=== PATIENT | female | born 1950 | race Caucasian/White ===

== ENCOUNTER 2019-02-24 06:36 | Day surgery (SDC) | payer MEDICARE ==
[2019-02-24] MEDS ORDERED: Diazepam 5 MG TAB ONE (07:17)
[2019-02-24] MEDS ORDERED: Midazolam HCl 2 mg/2 ml Vial ONE (07:55)
[2019-02-24] MEDS ORDERED: Fentanyl 100 MCG/2 ML VIAL ONE (07:55)
[2019-02-24] MEDS ORDERED: Aspirin Chewable 81 MG TAB ONE (07:58)
[2019-02-24] MEDS ORDERED: Heparin 10,000 UNITS/1 ML VIAL ONE (07:59)
[2019-02-24] MEDS ORDERED: Clopidogrel Bisulfate 300 MG TAB ONE (08:34)
[2019-02-24] MEDS ORDERED: Iopamidol 370 76% 100 ML VIAL ONE (09:50)
--- NOTE | 2019-02-24 15:35 | ULT ---
ULTRASOUND THYROID STANDARD: Date: 02/24/19 HISTORY: Thyroid cyst. COMPARISON: CT angiogram of neck from 2016. FINDINGS: Real-time Quintana scale and color evaluation of the thyroid was performed. Isthmus measures 4.0 mm in AP dimension. Right lobe measures 3.0 x 1.6 x 1.2 cm. Left lobe measures 2 .2 x 1.3 x 1.1 cm. There is a hypoechoic solid nodule within the right lobe of the liver, which is wider than tall, with smooth margins, without echogenic foci, measuring 0.9 x 0.5 x 0.7 cm. This is TIRADS 4 - Mildly susp icious. Given its small size, no aspiration or follow-up is required. Within the left lobe of the thyroid, there is a hypoechoic solid nodule with lobular margins, wider t bonds tall, without echogenic foci. This is a TIRADS 4 - Mildly suspicious. This nodule measures 0.8 x 0.5 x 0.6 cm. Given its small size, no follow-up nor fine needle aspiration is recommended. IMPRESSION: Nodules within both the right left lobe of the thyroid are both TIRADS 4 - Mildly suspicious. Althoug h given their small size, per TIRADS criteria, no follow-up or fine needle aspiration is required at this time. POS: [facility]
== END 2019-02-24 16:45 | disposition home or self-care (01) ==
LOC: CCL 06:36
PROVIDERS: ATTEND Internal Medicine Cardiovascular Disease
PROC: 027034Z Dilation of Coronary Artery, One Artery with Drug-eluting Intraluminal Device, Percutaneous Approach (ICD-10-PCS; principal; 2019-02-24)
PROC: 4A023N7 Measurement of Cardiac Sampling and Pressure, Left Heart, Percutaneous Approach (ICD-10-PCS; 2019-02-24)
PROC: B2111ZZ Fluoroscopy of Multiple Coronary Arteries using Low Osmolar Contrast (ICD-10-PCS; 2019-02-24)
DX: I25.10 Atherosclerotic heart disease of native coronary artery without angina pectoris (principal); I47.2 Ventricular tachycardia; E78.2 Mixed hyperlipidemia; I10 Essential (primary) hypertension; J44.9 Chronic obstructive pulmonary disease, unspecified; E04.2 Nontoxic multinodular goiter; Z86.73 Personal history of transient ischemic attack (TIA), and cerebral infarction without residual deficits; Z79.01 Long term (current) use of anticoagulants; Z79.899 Other long term (current) drug therapy
CPT/HCPCS: 76536; 76942; 92928; 93005; 93010; 93458; 99152; C1769; C1887; C9600; J1644; J2250; J3010; Q9967

== ENCOUNTER 2019-03-19 05:55 | Day surgery (SDC) | payer MEDICARE ==
[2019-03-18 11:47] VITALS: BMI 29.2
[2019-03-19] MEDS ORDERED: Midazolam HCl 2 mg/2 ml Vial ONE ×2 (07:32→10:58)
[2019-03-19] MEDS ORDERED: Fentanyl 100 MCG/2 ML VIAL ONE ×2 (07:32→10:58)
[2019-03-19] MEDS ORDERED: Propofol 500 MG/50 ML VIAL ONE (07:33)
[2019-03-19 09:35] LABS: #Basophils 0.1 thou/uL (0.0-0.2); #Eosinphils 0.1 thou/uL (0.0-0.7); #Lymphocytes 1.6 thou/uL (1.20-3.40); #Monocytes 0.7 thou/uL (0.11-0.59); #Neutrophils 4.7 thou/uL (1.40-6.50); %Basophils 0.8 % (0.0-1.0); %Eosinophils 1.9 % (0.0-10.0); %Lymphocytes 22.5 % (21.0-51.0); %Monocytes 9.4 % (0.0-10.0); %Neutrophils 65.4 % (42.0-75.0); Hemoglobin 12.4 g/dL (12.0-16.0); Mean Corpuscular HGB CONC 32.9 g/dL (32.0-36.0); Mean Corpuscular Hemoglobin 29.9 pg (27.0-31.0); Mean Corpuscular Volume 90.9 fL (78.0-98.0); Mean Platelet Volume 8.9 fL (7.4-10.4); Platelet Count 293 thou/uL (130-400); RBC Distribution Width 13.4 % (11.5-14.5); Red Blood Cell (RBC) Count 4.14 mill/uL (4.20-5.40); White Blood Cell (WBC) Count 7.2 thou/uL (4.8-10.8)
[2019-03-19 09:42] LABS: INR-International Normal Ratio 1.1; PTT 32.2 SEC (22.9-36.1); Prothrombin Time 14.8 SEC (12.0-14.7)
[2019-03-19 09:49] LABS: Anion Gap 11 mmol/L (10-20); BUN (Urea Nitrogen) 23 mg/dL (9.8-20.1); Calc. Creatinine Clearance 43 mL/min (70-130); Calcium 10.5 mg/dL (7.8-10.44); Carbon Dioxide 30 mmol/L (23-31); Chloride 103 mmol/L (98-107); Estimated GFR-MDRD 38; Glucose 117 mg/dL (80-115); Potassium 3.5 mmol/L (3.5-5.1); Sodium 140 mmol/L (136-145)
[2019-03-19] MEDS ORDERED: Lidocaine 1% (PF) 30 ML VIAL ONE (10:38)
--- NOTE | 2019-03-19 14:13 | OP ---
DATE OF PROCEDURE: 03/19/2019 INDICATIONS FOR PROCEDURE: Syncope, nonsustained ventricular tachycardia. PROCEDURE PERFORMED: Comprehensive electrophysiologic study with inductions. MEDICATIONS: As per Anesthesia. COMPLICATIONS: None. ESTIMATED BLOOD LOSS: Less than 5 mL. METHODS: After informed consent was obtained, the patient was brought to electrophysiology laboratory. The patient was prepped and draped in the usual sterile fashion. Using lidocaine, skin overlying the right femoral vessel was locally anesthetized and two 6-Zimbabwean sheaths were placed using standard techniques. They were aspirated and flushed. Under fluoroscopic guidance, quadripolar catheters were advanced. One was placed in the high right atrium and the other was placed to the His-bundle recording site. Atrial decremental pacing was performed with His-bundle electrogram recording. Next, the His-bundle catheter was moved to the ventricle for right ventricular pacing and recording and the atrial catheter was moved into coronary sinus for direct left atrial pacing and recording. Right ventricular pacing and recording performed to assess retrograde conduction characteristics. Pacing from the left atrium was performed to induce atrial flutter. Programmed stimulation was then performed in the ventricle to induce ventricular tachycardia. Programmed electrical stimulation was performed at 2 pacing cycle lengths at 500 and 400 milliseconds with quadruple extrastimuli down to less than 200 milliseconds. At the end of the procedure, all catheters were pulled, sheaths were pulled, pressure was applied to obtain hemostasis, and the patient was allowed to return to the recovery area in good condition. FINDINGS: 1. At baseline, the patient is in sinus rhythm with frequent premature ventricular complexes. Sinus cycle length was 776, AK interval was 151, QRS was 157 with right bundle morphology, QT was 463, AH was 56, HV was 54, antegrade Wenckebach block was seen at 470 milliseconds, retrograde Wenckebach block to 330 milliseconds. Retrograde conduction was noted to be concentric and decremental. No conclusive evidence for dual AV jered physiology is seen. HV interval measures 54 milliseconds. Blocked bundle of His was not seen. No accessory pathway of the atrioventricular type is identified. 2. Quadruple extrastimuli is provided at both 500 milliseconds pacing cycle length as well as 400 milliseconds pacing cycle length and was taken down to less than 200 milliseconds. Nonsustained polymorphic ventricular tachycardia could be seen with programmed electrical stimulation that was aggressive. IMPRESSION: Negative electrophysiologic study for inducible monomorphic ventricular tachycardia. No sustained arrhythmias were seen. RECOMMENDATIONS: In light of the patient's history of CVA as well as unexplained syncope, an ILR recorder would certainly have 2 separate indications for each of those issues. We are pending Insurance approval for placing an ILR monitor. Job ID: [id number]
[2019-03-19] MEDS ORDERED: Lidocaine 1% w/Epinephrine 1:100K 20 ML VIAL ONE (15:25)
--- NOTE | 2019-03-19 23:07 | OP ---
DATE OF PROCEDURE: 03/19/2019 INDICATIONS FOR PROCEDURE: Ms. Davis is a pleasant 68-year-old lady who has a history of syncope and nonsustained ventricular tachycardia. She underwent invasive electrophysiologic study and was found to be noninducible for malignant ventricular arrhythmia and because of her sudden syncope as well as a history of cryptogenic CVA, it was elected to place an ILR. MEDICATIONS: None. COMPLICATIONS: None. ESTIMATED BLOOD LOSS: None. METHODS: After informed consent was obtained, the patient was in PCU. She was prepped and draped in usual fashion. Using lidocaine, skin overlying the anterior chest wall was locally anesthetized using standard techniques. The skin puncture was performed and the LINQ was inserted in the subcutaneous tissue without difficulty. A 4-0 Vicryl stitch was placed to re-oppose the skin followed by Dermabond. Device was programmed. She tolerated the procedure well. The device implanted is a [employer] LINQ [id number], serial #[id number]. IMPRESSION: Successful implantable loop recorder insertion for cryptogenic stroke and syncope. RECOMMENDATIONS: Follow up in 6 weeks. Job ID: [id number]
--- NOTE | 2019-03-20 03:16 | DIS ---
DATE OF ADMISSION: 03/19/2019 DATE OF DISCHARGE: 03/19/2019 HISTORY OF PRESENT ILLNESS: Ms. Davis is a 68-year-old lady who has a history of coronary artery disease status post recent percutaneous revascularization. She apparently had recurrent nonsustained ventricular tachycardia. She also has a history of unexplained syncope preceded by little dizziness and also had a history of cryptogenic stroke. She is brought in today for invasive electrophysiological study in order to assess whether she is at risk for sudden cardiac . She does have well-preserved left ventricular systolic function. HOSPITAL COURSE: She was taken to electrophysiology laboratory, comprehensive electrophysiologic study with induction was performed and included program stimulation at 2 pacing cycle lengths with quadruple extrastimuli. She was not found to be inducible into a ventricular tachycardia that was meaningful. No ICD was therefore required. Her insurance is currently pending as to whether or not they will approve placement of an ILR for either of the diagnostic criteria for ILR as that being cryptogenic stroke or unexplained syncope with the potential for a malignant arrhythmia. At the present time, we anticipate her to discharge home today in good condition. Advised to follow a heart healthy diet. Activity otherwise as directed. MEDICATIONS: She will continue her home medications that include: 1. Apixaban. 2. Symbicort. 3. Clopidogrel. 4. Cymbalta. 5. Ezetimibe. 6. Losartan/hydrochlorothiazide. 7. Metoprolol. 8. Singulair. If insurance approves ILR placement, we will certainly try to do that before she leaves, if not she may need a second procedure once approved by her insurance. PRINCIPAL DIAGNOSES: 1. Syncope. 2. Nonsustained ventricular tachycardia. 3. Coronary artery disease, status post recent revascularization. 4. Previous cerebrovascular accident. PRINCIPAL PROCEDURES: 1. Comprehensive electrophysiologic study. 2. Left a trial pacing and recording with induction. Job ID: [id number]
== END 2019-03-19 16:55 | disposition home or self-care (01) ==
LOC: SDC 05:55
PROVIDERS: ATTEND Internal Medicine Cardiovascular Disease
PROC: 4A023FZ Measurement of Cardiac Rhythm, Percutaneous Approach (ICD-10-PCS; principal; 2019-03-19)
PROC: 4A0234Z Measurement of Cardiac Electrical Activity, Percutaneous Approach (ICD-10-PCS; 2019-03-19)
PROC: 0JH632Z Insertion of Monitoring Device into Chest Subcutaneous Tissue and Fascia, Percutaneous Approach (ICD-10-PCS; 2019-03-19)
DX: I47.2 Ventricular tachycardia (principal); R55 Syncope and collapse; I10 Essential (primary) hypertension; E78.5 Hyperlipidemia, unspecified; Z86.73 Personal history of transient ischemic attack (TIA), and cerebral infarction without residual deficits; Z79.01 Long term (current) use of anticoagulants; Z79.02 Long term (current) use of antithrombotics/antiplatelets; Z79.51 Long term (current) use of inhaled steroids; Z79.899 Other long term (current) drug therapy; Z88.8 Allergy status to other drugs, medicaments and biological substances; Z95.5 Presence of coronary angioplasty implant and graft; Z98.890 Other specified postprocedural states
CPT/HCPCS: 80048; 85025; 85610; 85730; 93620; 93621; C1730; C1769; J1642; J2001; J2250; J2704; J3010

== ENCOUNTER 2019-03-19 20:58 | Inpatient (IN) | payer MEDICARE ==
[2019-03-19] MEDS ORDERED: Amiodarone In Dextrose 200 ML IVPB SCH (21:15)
[2019-03-19] MEDS ORDERED: Amiodarone 150 MG/3 ML VIAL ONE (21:22)
[2019-03-19] MEDS ORDERED: Magnesium 2 GM/50 ML BAG (IN WATER) ONE ×2 (21:25→22:20)
[2019-03-19] MEDS ORDERED: Lidocaine 2% PF 100 mg/5 ml Syringe ONE ×2 (21:32→22:27)
[2019-03-19] MEDS ORDERED: Ondansetron PF 4 MG/2 ML Vial ONE (21:34)
[2019-03-19] MEDS ORDERED: Midazolam HCl 2 mg/2 ml Vial ONE (22:20)
[2019-03-19] MEDS ORDERED: Lidocaine 2 gm/D5W 500 ml 500 ML ONE (22:40)
[2019-03-19 22:49] LABS: CKMB 2.9 ng/mL (0-6.6)
[2019-03-19] MEDS ORDERED: Acetaminophen 325 MG TAB PO PRN (23:53)
[2019-03-19] MEDS ORDERED: HYDROcodone/Acetaminophen 7.5/325 mg Tablet PO PRN (23:53)
[2019-03-19] MEDS ORDERED: traMADol HCl 50 MG TAB PO PRN (23:56)
[2019-03-20] MEDS ORDERED: Sodium Chloride 0.9% 1,000 ML IV SCH (00:15)
[2019-03-20] MEDS ORDERED: Lidocaine 2 gm/D5W 500 ml 500 ML IVPB SCH (00:15)
[2019-03-20 00:39] VITALS: BMI 32.3
[2019-03-20] MEDS: Amiodarone 450 MG in Dextrose 5% in Water 250 ML IVPB SCH ×2 (01:02→16:01)
[2019-03-20 01:49] LABS: Troponin I 0.092 ng/mL (< 0.028)
--- NOTE | 2019-03-20 02:16 | HP ---
TIME: 11:50 p.m. HISTORY OF PRESENT ILLNESS: This is a 68-year-old white female with a history of coronary artery disease, hypertension, hyperlipidemia, peptic ulcer disease, asthma, and CVA, who presents with syncope. The patient's issues began approximately 3 months ago, when she was at home and passed out for no reason. She did not tell family. She did not seek medical attention. Then, approximately 1 month ago, she was in the kitchen. She passed out and awoke on her back on the floor. She then went to a class. She did not seek any medical attention at that time. She then had a recurrent episode and her family took her to see Dr. Najera who performed a Cardiolite stress test, which was found to be unremarkable. She also had a cardiac catheterization, which revealed disease of the circumflex and a stent x1 was placed. She was also referred to Dr. Ceballos recently and after insurance approval, Dr. Brown inserted a loop recorder today. She then left the office and went to eat at [employer] and on her way in, she had another syncopal episode. EMS was called. There, she was found to be in v-tach. She was then sent to the [facility], treatment was initiated. She was then transferred to [facility] where she was stabilized. She was cardioverted twice. She was then placed on an amiodarone drip and then later to a lidocaine drip, which controlled her v-tach. Dr. Plasencia has been consulted and has been managing her medications. She will remain on IV amiodarone, magnesium, and lidocaine overnight. PAST MEDICAL HISTORY: Includes asthma, coronary artery disease, hypertension, hyperlipidemia, CVA in 2016, peptic ulcer disease, treated for H pylori, followed by Dr. Berrios. SURGERIES: Include total knee replacement, JERE-BSO, T and A, cardiac cath on 03/17/2019, and cystectomy. MEDICATIONS: Include; 1. Ellipta inhaler. 2. Eliquis 5 b.i.d. 3. Losartan/HCTZ 100/25 q.a.m. 4. Singulair 10 p.o. at bedtime. 5. ProAir p.r.n. 6. Tramadol 50 p.r.n. 7. [place] 10/325 q.6 p.r.n. pain. 8. Crestor 20 daily. 9. Zetia 10 daily. 10. Duloxetine 60 daily. 11. Symbicort 2 puffs b.i.d. 12. Flonase 1 spray each nostril daily. 13. Magnesium 400 daily. ALLERGIES: NIACIN, WHICH CAUSES SWEATS AND LIPS TO TINGLE. FAMILY HISTORY: Mother with a CVA at 74. Father with an PR at the age of 84. Multiple family members with coronary artery disease, hypertension, hyperlipidemia, lung issues, diabetes, strokes, and drug addiction. SOCIAL HISTORY: She is . She had 2 sons, one from drug addiction. The other son lives in [place], [place]. She has 1 grandson. She has no tobacco or alcohol use. She is a retired teacher. REVIEW OF SYSTEMS: As above. PHYSICAL EXAMINATION: VITAL SIGNS: Blood pressure 99/60, pulse 76, respirations 17, pulse ox 98. GENERAL: The patient is currently sedated from cardioversion. She has received IV Versed. Otherwise, in no acute distress. HEENT: Pupils equal and reactive to light. Extraocular movements intact. TM, nose, throat clear. NECK: Supple. HEART: Regular rate and rhythm at this time. LUNGS: Clear. ABDOMEN: Soft, obese. EXTREMITIES: With no edema. LABORATORY DATA: White count 7.2, H and H of 12 and 34, platelet of 293. Sodium 140, potassium 3.5, creatinine 1.39, BUN 23, glucose 139. Liver function tests normal. Lipase 42. TSH 1.242. Urine; specific gravity 1.026. H pylori antibody negative. ASSESSMENT: 1. Recurrent ventricular tachycardia, responding today to IV lidocaine drip. In a normal sinus rhythm at this time. 2. Status post cardioversion x2 tonight. 3. Coronary artery disease with a stent x1. 4. Asthma. 5. Peptic ulcer disease. 6. History of cerebrovascular accident in 2016. 7. Hypertension. 8. Hyperlipidemia. PLAN: 1. History was obtained from the sister. The patient was sedated status post IV Versed. 2. We will continue on the lidocaine drip at 2 mg/min and amiodarone drip at 1 mg/min. 3. We will continue with magnesium. 4. Protonix [address] 5[address]. Plasencia has been consulted. 6. The patient will be transferred to the ICU. Routine orders ordered. 7. We will continue to follow. Job ID: [id number]
[2019-03-20] MEDS: Ipratropium Bromide 2.5 ml Neb NEB SCH ×4 (03:12→18:47)
[2019-03-20 04:45] LABS: #Monocytes 0.7 thou/uL (0.11-0.59); #Neutrophils 5.8 thou/uL (1.40-6.50); %Basophils 0.4 % (0.0-1.0); %Eosinophils 0.6 % (0.0-10.0); %Lymphocytes 13.2 % (21.0-51.0); %Monocytes 8.8 % (0.0-10.0); %Neutrophils 76.9 % (42.0-75.0); Hemoglobin 10.4 g/dL (12.0-16.0); Mean Corpuscular Hemoglobin 30.3 pg (27.0-31.0); Mean Corpuscular Volume 91.6 fL (78.0-98.0); Mean Platelet Volume 9.2 fL (7.4-10.4); Platelet Count 222 thou/uL (130-400); RBC Distribution Width 13.2 % (11.5-14.5); Red Blood Cell (RBC) Count 3.45 mill/uL (4.20-5.40); White Blood Cell (WBC) Count 7.5 thou/uL (4.8-10.8)
[2019-03-20 05:09] LABS: Troponin I 0.079 ng/mL (< 0.028)
[2019-03-20 05:15] LABS: ALT (SGPT) 22 U/L (8-55); AST (SGOT) 25 U/L (5-34); Albumin 3.5 g/dL (3.4-4.8); Alkaline Phosphatase 61 U/L (40-150); Anion Gap 11 mmol/L (10-20); BUN (Urea Nitrogen) 24 mg/dL (9.8-20.1); Bilirubin, Total 0.7 mg/dL (0.2-1.2); Calc. Creatinine Clearance 63 mL/min (70-130); Calcium 8.6 mg/dL (7.8-10.44); Carbon Dioxide 25 mmol/L (23-31); Chloride 104 mmol/L (98-107); Estimated GFR-MDRD 52; Globulin 2.2 g/dL (2.4-3.5); Glucose 134 mg/dL (80-115); Potassium 3.2 mmol/L (3.5-5.1); Protein, Total 5.7 g/dL (6.0-8.3); Sodium 137 mmol/L (136-145)
[2019-03-20] MEDS: Mometasone/Formoterol 120 PUFF INHALER INH SCH ×2 (07:45→18:48)
[2019-03-20] MEDS: Apixaban 5 MG TAB PO SCH ×2 (08:52→20:25)
[2019-03-20] MEDS: DULoxetine 60 MG CAP PO SCH (08:52)
[2019-03-20] MEDS: Pantoprazole 40 MG VIAL IVP SCH ×2 (08:53→20:25)
[2019-03-20] MEDS: Sucralfate 1 GM TAB PO SCH ×2 (08:53→17:54)
[2019-03-20] MEDS ORDERED: Losartan/Hydrochlorothiazide 100 mg/25 mg Tablet PO SCH (09:00)
[2019-03-20] MEDS ORDERED: Prevnar 13-Val Conj/PF 0.5 ML SYRINGE IM ONE (09:00)
[2019-03-20] MEDS: Losartan/Hydrochlorothiazide 100 mg/25 mg Tablet PO SCH ×2 (09:01→10:37)
--- NOTE | 2019-03-20 09:41 | PRG ---
DATE OF SERVICE: 03/20/2019 SUBJECTIVE: The patient is doing well this morning. She is feeling much better this morning. No complaints of any chest pain, nausea, vomiting, shortness of breath, or dizziness. She was admitted last night with recurrent ventricular tachycardia and was cardioverted. It appears that the amiodarone did not convert the patient, but the lidocaine did and the patient has done well overnight with no further ectopy. OBJECTIVE: VITAL SIGNS: Temperature 97.7, pulse 66, respirations 14, blood pressure 115/64, and O2 saturation 100%. GENERAL: No acute distress. HEENT: Clear. HEART: Regular rate and rhythm. LUNGS: Clear. ABDOMEN: Soft, obese, and nontender. EXTREMITIES: No edema. LABORATORY DATA: White count 7.5, hemoglobin and hematocrit of 10 and 31. Sodium 137, potassium 3.2, glucose 134, creatinine 1.05. Troponin I of 0.207, 0.092, 0.079. ASSESSMENT: 1. Recurrent ventricular tachycardia, status post cardioversion and presently on amiodarone and lidocaine drip. 2. Status post cardioversion x2 last night. 3. Coronary artery disease with a stent x1 to the circumflex. 4. Asthma. 5. Hypokalemia. 6. Peptic ulcer disease. 7. History of cerebrovascular accident in 2016. 8. Hypertension. 9. Hyperlipidemia. PLAN: 1. Dr. Plasencia to see this morning. To make adjustments with her drips. 2. Potassium replacement. 3. Continue Protonix. 4. We will continue to follow. 5. We will need to be seen by EP. The patient probably will eventually need cardiac ablation. Job ID: [id number]
[2019-03-20] MEDS ORDERED: Potassium Chloride 10 MEQ TAB PO SCH (10:30)
[2019-03-20] MEDS: Potassium Chloride 10 MEQ TAB PO SCH ×2 (10:36→20:26)
[2019-03-20] MEDS: 1/2 NS w/KCL 20 mEq 1,000 ML IV SCH ×2 (10:38→20:35)
[2019-03-20] MEDS: Ondansetron ODT 4 MG TAB PO PRN (15:45)
--- NOTE | 2019-03-20 17:08 | CON ---
DATE OF CONSULTATION: 03/20/2019 INDICATION FOR CONSULTATION: This is a 68-year-old female, who has had episodes of syncope starting back in January. She was diagnosed with nonsustained ventricular tachycardia on an event monitor. She underwent cardiac catheterization and was found to have coronary artery disease and underwent angioplasty and stent placement to the left circumflex; otherwise, she had no significant flow-limiting disease. She did have some improvement, but continued to have some ventricular tachycardia. She was advised to undergo electrophysiological study, which was performed yesterday. She was found to not have any evidence of sustained monomorphic ventricular tachycardia. She then was implanted with a LINQ recorder. On her way home, she stopped and getting out of the car, she became very dizzy and lightheaded and then apparently had a syncopal episode according to the family. 911 was called and she was taken to the emergency room at [facility]. She was found to be in ventricular tachycardia. She was given IV amiodarone and perhaps received a shock there. She then stabilized and was brought over to [facility]. While she was here, she also developed two more episodes of sustained ventricular tachycardia. She was given more IV amiodarone and then eventually required IV lidocaine and then eventually was started on IV lidocaine drip to maintain her sinus rhythm. She did not have any CPR and otherwise has been doing stable now that she is on the IV amiodarone with the IV lidocaine. At this time, she denies any symptoms or complaints. Her heart rate is in normal sinus rhythm with a heart rate of 65 beats per minute. PAST MEDICAL HISTORY: Significant for the syncopal episodes, CVA, hyperlipidemia, hypertension, coronary artery disease, history of sustained ventricular tachycardia, and COPD. PAST SURGICAL HISTORY: She has had hysterectomy, cholecystectomy, and tonsillectomy. FAMILY HISTORY: Her mother had a CVA. Her father had a myocardial infarction. She has siblings who have diabetes. MEDICATIONS: Prior to admission included: 1. Eliquis. 2. Zetia. 3. Crestor. 4. Losartan. 5. Montelukast. 6. Fluticasone. 7. Propionate. 8. Duloxetine. 9. She has [employer] Ellipta inhaler. 10. She is on Symbicort inhaler. 11. She also has esomeprazole 40 mg once a day. REVIEW OF SYSTEMS: Essentially, the 12-point review of systems is unremarkable except for what is noted in the history of present illness. She denied any new HEENT complaints. No chest pain. No significant shortness of breath. No GI or complaints and no lower extremity edema. PHYSICAL EXAMINATION: GENERAL: Reveals a well-developed, well-nourished, obese female. VITAL SIGNS: Her blood pressure is 123/86, heart rate is in the 60s and shows a sinus rhythm, she is afebrile, and respiratory rate is 15. HEENT: Shows the head to be normocephalic and atraumatic. NECK: Carotid pulses are present. There were no significant bruits noted. CHEST: Clear to auscultation without rales, rhonchi, or wheezing. CARDIOVASCULAR: Reveals a regular rate and rhythm with normal S1 and S2. There is no significant S3 or S4. There were no significant murmurs, heaves, thrills, bruits, or rubs. ABDOMEN: Obese with positive bowel sounds. No organomegaly or masses were noted. EXTREMITIES: Femoral pulses are present. Pedal pulses are difficult to palpate , but are present. NEUROLOGIC: The patient appears to be fully intact. SKIN: Warm and dry. LABORATORY DATA: WBC is 7.5, hemoglobin 10.4, hematocrit 31.6, and platelet count was 222,000. Sodium is 137, potassium is 3.2, chloride 104, BUN is 24, creatinine 1.05, and blood sugar was 134. Cardiac enzymes are indeterminate, but this would not be unexpected after she has had the ventricular tachycardia and also after electrophysiological evaluation yesterday. Her troponin I on admission was 0.207. It has continued to decline and this morning is down to 0.079. IMAGING STUDIES: Her EKG shows a normal sinus rhythm at this time without any acute changes. She does have a right bundle-branch block. There are no acute ST- segment changes otherwise. Her chest x-ray was unremarkable. IMPRESSION AND PLAN: 1. Sustained ventricular tachycardia. She had an EP study yesterday, but will need to undergo further evaluation on Friday and most likely will need to have an implanted defibrillator unless there is a focus that can be ablated.They were not able to determine this yesterday during the electrophysiological evaluation. 2. History of hypertension. This is under good control at this time. 3. History of coronary artery disease. This also appears to be stable. There are no EKG changes to indicate ischemia, and the cardiac enzymes are unremarkable as far as myocardial infarction is concerned. This will be most likely a reflection of the study done yesterday. 4. Right bundle-branch block. This also appears to be stable and is not a new finding. We will be more than happy to continue to follow the patient with you. At this time, we will continue her medications with the IV amiodarone as well as IV lidocaine at a low dose. We will continue the Eliquis as well as her other medications. 5. Hypercholesterolemia. She will continue on the Crestor and we will replace her potassium. 6. Hypokalemia. We will replace her potassium and also continue to monitor the magnesium as necessary. Job ID: [id number] MTDD
[2019-03-20] MEDS ORDERED: Clopidogrel Bisulfate 75 MG TAB PO SCH (19:45)
[2019-03-20] MEDS: Montelukast Sodium 10 mg Tablet PO SCH (20:25)
[2019-03-20] MEDS: Rosuvastatin 20 MG TAB PO SCH (20:25)
[2019-03-21 05:12] LABS: Anion Gap 13 mmol/L (10-20); BUN (Urea Nitrogen) 21 mg/dL (9.8-20.1); Calc. Creatinine Clearance 71 mL/min (70-130); Calcium 8.9 mg/dL (7.8-10.44); Carbon Dioxide 23 mmol/L (23-31); Chloride 99 mmol/L (98-107); Estimated GFR-MDRD 60; Glucose 119 mg/dL (80-115); Potassium 3.9 mmol/L (3.5-5.1); Sodium 131 mmol/L (136-145)
[2019-03-21] MEDS: Pantoprazole 40 MG VIAL IVP SCH ×2 (07:52→20:43)
[2019-03-21] MEDS: Ipratropium Bromide 2.5 ml Neb NEB SCH ×3 (08:03→18:42)
[2019-03-21] MEDS: Mometasone/Formoterol 120 PUFF INHALER INH SCH ×2 (08:09→18:44)
[2019-03-21] MEDS: Ondansetron ODT 4 MG TAB PO PRN (08:30)
[2019-03-21] MEDS: DULoxetine 60 MG CAP PO SCH (09:19)
[2019-03-21] MEDS: Clopidogrel Bisulfate 75 MG TAB PO SCH (09:20)
[2019-03-21] MEDS: Potassium Chloride 10 MEQ TAB PO SCH ×2 (10:09→19:10)
[2019-03-21] MEDS: Sucralfate 1 GM TAB PO SCH ×2 (10:09→19:10)
[2019-03-21] MEDS: Apixaban 5 MG TAB PO SCH (10:09)
[2019-03-21] MEDS ORDERED: Losartan/Hydrochlorothiazide 100 mg/25 mg Tablet PO SCH (11:15)
[2019-03-21] MEDS ORDERED: hydrALAZINE 20 MG/ML VIAL SLOW IVP PRN (11:19)
[2019-03-21] MEDS: Losartan/Hydrochlorothiazide 100 mg/25 mg Tablet PO SCH (11:28)
--- NOTE | 2019-03-21 11:53 | PDOC.CTH ---
Cardiology Progress Note - Subjective Pt. seen and eval. by me. No overnight arrhythmias. HR decreased with amiodarone and d/c'd yesterday. no cardiac complaints. - Objective Vital Signs Temp Pulse Resp Pulse Ox 03/21/19 08:03 57 L 15 99 03/21/19 08:00 95 03/21/19 07:00 98.9 F 03/21/19 03:00 97.8 F Weight 171 lb 1.259 oz 03/20/19 03/21/19 03/22/19 06:59 06:59 06:59 Intake Total 729 2494 150 Output Total 450 680 500 Balance 279 1814 -350 - Physical Examination General/Neuro: alert & oriented x3 Neck: carotid US brisk, no JVD present Lungs: CTA Heart: RRR Abdomen: NT/ND, soft - Telemetry Telemetry Rhythm: NSR - Labs Result Diagrams: 03/20/19 04:15 03/21/19 04:03 Troponin/CKMB CK-MB (CK-2) 2.9 ng/mL (0-6.6) 03/19/19 21:59 Troponin I 0.079 ng/mL (< 0.028) H 03/20/19 04:15 - Assessment/Plan 1. V-Tach with syncope. Likely will need AICD. EP to see tomorrow. 2. CAD. s/p ptca/stent to L-circ. Pt. on plavix + asa. Was also on eliquis. Will stop in anticipation of EP eval./ AICD.Last dose of Eliquis was Friday AM. 3. HTN: still elevated. Add Norvasc. 4. RBBB: not new. 5. Hyponatremia. : Vol. restrict. HCTZ stopped. 6. Hypokalemia : replace per protocal.
[2019-03-21] MEDS: Sodium Chloride 0.9% 1,000 ML IV SCH (11:56)
[2019-03-21] MEDS ORDERED: Amlodipine 5 MG TAB PO SCH (12:00)
[2019-03-21] MEDS ORDERED: Potassium Chloride 20 MEQ TAB PO PRN (12:07)
[2019-03-21] MEDS ORDERED: CCU ELECTROLYTE REPLACEMENT PROTOCOL FS PRN (12:07)
[2019-03-21] MEDS ORDERED: Magnesium Oxide 400 MG TAB PO PRN ×2 (12:07)
[2019-03-21] MEDS ORDERED: Potassium Phosphate 9 MMOL in Sodium Chloride 0.9% 100 ML IVPB PRN (12:07)
[2019-03-21] MEDS ORDERED: Magnesium 2 GM/50 ML 2 GM in Premix Bag 1 BAG IVPB PRN (12:07)
[2019-03-21] MEDS ORDERED: Potassium Chloride 40 MEQ in Premix Bag 1 BAG IVPB PRN (12:07)
[2019-03-21] MEDS ORDERED: PHOS-NAK 1 PKT PACK PO PRN ×2 (12:07)
[2019-03-21] MEDS ORDERED: Potassium Phosphate 12 MMOL in Sodium Chloride 0.9% 250 ML 250 ML IV PRN (12:07)
[2019-03-21] MEDS ORDERED: Potassium Phosphate 15 MMOL in Sodium Chloride 0.9% 250 ML 250 ML IV PRN (12:07)
[2019-03-21] MEDS ORDERED: Potassium Chloride 40 MEQ in Sodium Chloride 0.9% 250 ML 250 ML IVPB PRN (12:07)
--- NOTE | 2019-03-21 17:52 | PRG ---
DATE OF SERVICE: 03/21/2019 SUBJECTIVE: The patient is doing well this morning. No complaints of chest pain, shortness of breath, nausea, or vomiting. No ectopy last night. Amiodarone was stopped. Continues to be on a lidocaine drip. OBJECTIVE: VITAL SIGNS: Temperature 98.9, blood pressure 170/85, heart rate 56, and O2 saturation 97%. HEART: Regular rate and rhythm. LUNGS: Clear. ABDOMEN: Soft. EXTREMITIES: No edema. LABORATORY DATA: Sodium 131, potassium 3.9, glucose 119. ASSESSMENT: 1. Hyponatremia. The patient is presently on half-normal saline as well as hydrochlorothiazide. We will change fluids to normal saline and fluid restrict. This should correct her. We will stop hydrochlorothiazide if necessary. 2. Recurrent ventricular tachycardia, stable at this time, status post cardioversion. Presently only on a lidocaine drip. 3. Status post cardioversion x2. 4. Coronary artery disease with stent x1 to the circumflex. 5. Asthma. 6. Hypokalemia. 7. Peptic ulcer disease. 8. History of cerebrovascular accident in 2014. 9. Hypertension. 10. Hyperlipidemia. PLAN: 1. Dr. Plasencia to see today. 2. Change IV fluids to normal saline. 3. Fluid restriction 1200 mL. 4. Recheck electrolytes in the a.m. 5. To be re-evaluated by EP in the a.m. Job ID: [id number]
[2019-03-21] MEDS: Rosuvastatin 20 MG TAB PO SCH (20:44)
[2019-03-21] MEDS: Montelukast Sodium 10 mg Tablet PO SCH (20:44)
--- NOTE | 2019-03-21 21:25 | PRG ---
DATE OF SERVICE: 03/21/2019 SUBJECTIVE: Ryan has had no more ventricular tachycardia. Awaiting EP input. OBJECTIVE: VITAL SIGNS: Heart rate 72, respiratory rate 16, oximetry is 97% on room air, and blood pressure 124/78. LUNGS: Clear. HEART: Regular rhythm. ABDOMEN: Soft. EXTREMITIES: Without clubbing, cyanosis, or edema. LABORATORY DATA: Sodium 131, potassium 3.9, chloride 99, bicarb 23, BUN 21, creatinine 0.93. IMPRESSION: 1. Status post ventricular tachycardia, clinically stable. 2. 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 3. Mild hyponatremia. 4. Anemia with a normal mean corpuscular volume. 5. History of lipid disorder. 6. History of coronary artery disease. 7. History of anticoagulation prior to admission. 8. Currently, continue observation on lidocaine and amiodarone. She appears to be stable. Job ID: [id number] MTDD
--- NOTE | 2019-03-22 02:16 | CON ---
DATE OF CONSULTATION: 03/21/2019 HISTORY OF PRESENT ILLNESS: Ryan is a 68-year-old female who has been identified as having nonsustained ventricular tachycardia on event monitor. She has undergone cardiac catheterization, stenting in her circumflex artery. She had a LINQ monitor placed the day of admission and then decided to go eat dinner after she left the hospital and had syncope in the parking lot. She was found to have ventricular tachycardia and was cardioverted multiple times, but did not require intubation. She subsequently was admitted to [facility]. She had no complaints. PAST MEDICAL HISTORY: 1. Remarkable for syncope. 2. History of CVA. 3. Lipid disorder. 4. Hypertension. 5. Coronary stenting. 6. Hysterectomy. 7. Cholecystectomy. 8. Tonsillectomy. FAMILY HISTORY: Positive for vascular disease. Negative for lung disease in early age. SOCIAL HISTORY: Non contributory. MEDICATIONS: Been reviewed. REVIEW OF SYSTEMS: Ten points otherwise negative. She had family in the room that had helped with history since she has an expressive aphasia that slows her down considerably since her stroke. PHYSICAL EXAMINATION: GENERAL: She is on lidocaine and amiodarone drip. She is in no distress. VITAL SIGNS: Blood pressure is in the 120s, heart rate is in the 60s. She is in sinus rhythm, respiratory rate is 15, She is in no distress. She is on room air. HEENT: Head and neck exam unremarkable. LUNGS: Clear. HEART: Regular rhythm. S1, S2 are normal. Has no murmur or gallop. ABDOMEN: Soft and nontender. EXTREMITIES: Without clubbing, cyanosis, or edema. NEUROLOGIC: Nonfocal. LABORATORY DATA: White count is 7.5, hemoglobin 10.4. Electrolytes remarkable for potassium 3.2. IMPRESSION: Ventricular tachycardia requiring cardioversion. She is stable on amiodarone, lidocaine. We will await Electrophysiology input. She would stay in the Critical Care Unit in my opinion. This is a March 20 consult. Job ID: [id number]
[2019-03-22 05:52] LABS: #Eosinphils 0.1 thou/uL (0.0-0.7); #Monocytes 0.9 thou/uL (0.11-0.59); #Neutrophils 6.6 thou/uL (1.40-6.50); %Basophils 0.3 % (0.0-1.0); %Eosinophils 1.5 % (0.0-10.0); %Lymphocytes 11.3 % (21.0-51.0); %Monocytes 10.5 % (0.0-10.0); %Neutrophils 76.3 % (42.0-75.0); Mean Corpuscular HGB CONC 32.6 g/dL (32.0-36.0); Mean Corpuscular Hemoglobin 29.9 pg (27.0-31.0); Mean Corpuscular Volume 91.8 fL (78.0-98.0); Mean Platelet Volume 9.1 fL (7.4-10.4); Platelet Count 218 thou/uL (130-400); RBC Distribution Width 13.5 % (11.5-14.5); Red Blood Cell (RBC) Count 3.67 mill/uL (4.20-5.40); White Blood Cell (WBC) Count 8.6 thou/uL (4.8-10.8)
[2019-03-22 06:09] LABS: Anion Gap 12 mmol/L (10-20); BUN (Urea Nitrogen) 13 mg/dL (9.8-20.1); Calc. Creatinine Clearance 72 mL/min (70-130); Carbon Dioxide 22 mmol/L (23-31); Chloride 104 mmol/L (98-107); Estimated GFR-MDRD 61; Glucose 108 mg/dL (80-115); Potassium 3.4 mmol/L (3.5-5.1); Sodium 135 mmol/L (136-145)
[2019-03-22] MEDS: Ipratropium Bromide 2.5 ml Neb NEB SCH ×3 (07:40→19:07)
[2019-03-22] MEDS: Mometasone/Formoterol 120 PUFF INHALER INH SCH ×2 (07:43→19:07)
--- NOTE | 2019-03-22 08:32 | PRG ---
DATE OF SERVICE: 03/22/2019 SUBJECTIVE: The patient is doing well, has had no further ventricular tachycardia overnight. She is off the amiodarone and lidocaine drips currently. OBJECTIVE: VITAL SIGNS: Her temperature is 99.0, pulse 64, blood pressure 124/70, O2 saturation 96%. HEENT: Unremarkable. NECK: No JVD. CHEST: Clear without wheezing. CARDIAC: S1 and S2 regular ectopy. ABDOMEN: Soft, nontender. EXTREMITIES: No edema. LABORATORY DATA: White blood cell count 8.6, hematocrit 33.7, and platelet count 218. Sodium 135, potassium 3.4, chloride 104, CO2 of 22, BUN 13, creatinine 0.9, glucose 108. ASSESSMENT: Ventricular tachycardia. PLAN: 1. Observation. Electrophysiology consult. Remain in ICU until cleared by EP. 2. Replace potassium. Job ID: [id number]
[2019-03-22] MEDS ORDERED: Losartan/Hydrochlorothiazide 100 mg/25 mg Tablet PO SCH (09:00)
[2019-03-22] MEDS ORDERED: Iopamidol 370 76% 50 ML VIAL FS ONE (09:49)
[2019-03-22] MEDS: Sucralfate 1 GM TAB PO SCH ×2 (09:56→18:11)
[2019-03-22] MEDS: Amlodipine 5 MG TAB PO SCH (09:57)
[2019-03-22] MEDS: Potassium Chloride 10 MEQ TAB PO SCH ×2 (09:57→18:11)
[2019-03-22] MEDS: DULoxetine 60 MG CAP PO SCH (09:58)
[2019-03-22] MEDS: Losartan 25 MG TAB PO SCH (09:59)
[2019-03-22] MEDS: Pantoprazole 40 MG VIAL IVP SCH ×2 (10:00→21:24)
[2019-03-22] MEDS: Clopidogrel Bisulfate 75 MG TAB PO SCH (10:02)
--- NOTE | 2019-03-22 10:23 | CON ---
DATE OF CONSULTATION: 03/20/2019 HISTORY OF PRESENT ILLNESS: Ms. Davis is a very pleasant female who is not intubated. Apparently, she just had a loop recorder placed and went to dinner afterwards and fell out. She was taken to the emergency room at [place]. She was in ventricular tachycardia. She was cardioverted but she had ventricular tachycardia with a pulse apparently. She is transferred to [facility], [place]. She has had amiodarone and lidocaine started. Shortly after arriving here, she apparently had more ventricular tachycardia. She did not require any chest compressions. She is in sinus rhythm now. Cardiology is following. I was consulted because of placement in the critical care unit. PAST MEDICAL HISTORY: Remarkable for: 1. Syncope in the past. 2. History of nonsustained ventricular tachycardia in the past, identified on the monitor. 3. History of cardiac catheterization with coronary stenting of the circumflex. 4. History of cerebrovascular accident. 5. History of lipid disorder. 6. History of hypertension. 7. History of COPD reportedly. 8. Status post hysterectomy. 9. Status post cholecystectomy. 10. Tonsillectomy. FAMILY HISTORY: For vascular disease and diabetes. SOCIAL HISTORY: Non contributory. MEDICATIONS: Prior to admission, she is on Eliquis, Zetia, Crestor, losartan, Singulair, fluticasone, duloxetine, Incruse, Symbicort as well as a proton pump inhibitor. REVIEW OF SYSTEMS: Twelve point review of systems otherwise negative. She denies chest pain, shortness of breath, palpitations, or any symptoms at this time. PHYSICAL EXAMINATION: GENERAL: She is very pleasant woman in no distress. VITAL SIGNS: Oximetry is 99%. She is on 3 L. blood pressure 145/56, heart rate 58 and sinus rhythm, respiratory rate is in the teens. HEENT: Pupils are equal. Sclerae are anicteric. Extraocular movements are full. She is slightly dysarthric from a past CVA 3 years ago. She has family in the room that is very quick to help with questions. NECK: Supple. No lymphadenopathy. LUNGS: Clear. HEART: Regular rhythm. S1 and S2 are normal. ABDOMEN: Soft and nontender. EXTREMITIES: Without clubbing, cyanosis, or edema. NEURO: Grossly nonfocal other than her mild dysarthria. LABORATORY DATA: White count 7.5, hemoglobin 10.4, platelets 222. Sodium 137, potassium 3.2, chloride 104, bicarb 25, BUN 24, creatinine 1.05, glucose 134. Troponins are 0.2, 0.09 and 0.07. Albumin is 3.5. IMPRESSION: 1. Status post ventricular tachycardia, now on amiodarone and lidocaine, clinically stable at this time. She will remain in critical care unit. I will be happy to follow with the other physicians caring for. Other problems include history of cerebrovascular accident with a little residual dysarthria, history of circumflex stenting recently. 2. History of hypertension. 3. Lipid disorder. 4. History of ulcer disease on a proton pump inhibitor. 5. History of asthma, on 2 inhalers and Singulair. 6. History of Helicobacter pylori. I will be happy to follow the other physicians caring for. Fortunately at this time, she is stable, did not require mechanical ventilation or CPR and has no complaints. TIME SPENT: This is a 70-minute consult, with greater than 50% of the time spent on the unit coordinating care. Job ID: [id number] [facility]
[2019-03-22] MEDS: Sodium Chloride 0.9% 1,000 ML IV SCH (13:46)
--- NOTE | 2019-03-22 14:04 | PRG ---
DATE OF SERVICE: 03/22/2019 SUBJECTIVE: Ms. Davis is resting comfortably. She has had no recurrence of ventricular tachycardia through the night. She will be undergoing an AICD placement today. She has no other complaints. OBJECTIVE: VITAL SIGNS: BP 133/75. LUNGS: Clear. HEART: Reveals a regular rhythm without murmur, gallops, or rubs. LABORATORY DATA: Hemoglobin 11.3 and hematocrit 33.7. Electrolytes; sodium 135, potassium 3.4, chloride 104, CO2 of 22, and creatinine 0.92. IMPRESSION: Episode of ventricular tachycardia. PLAN: AICD placement today. Further treatment recommendations pending Cardiology and Electrophysiology. Job ID: [id number]
[2019-03-22] MEDS ORDERED: Lidocaine 1% (PF) 30 ML VIAL ONE (17:16)
[2019-03-22] MEDS ORDERED: Fentanyl 100 MCG/2 ML VIAL ONE (17:47)
[2019-03-22] MEDS ORDERED: Ondansetron HCl/PF 4 MG/2 ML Vial IVP PRN (18:04)
[2019-03-22] MEDS ORDERED: Promethazine HCl 25 MG/ML VIAL IM PRN (18:04)
[2019-03-22] MEDS ORDERED: Promethazine HCl 25 MG/ML VIAL SLOW IVP PRN (18:04)
[2019-03-22] MEDS: Montelukast Sodium 10 mg Tablet PO SCH (21:23)
[2019-03-22] MEDS: Rosuvastatin 20 MG TAB PO SCH (21:23)
--- NOTE | 2019-03-23 07:35 | PDOC.CTH ---
Cardiology Progress Note - Subjective Doing well overall. - Objective Vital Signs Pulse Ox 03/23/19 04:08 98 03/22/19 20:00 93 L Weight 173 lb 3.2 oz 03/22/19 03/23/19 03/24/19 06:59 06:59 06:59 Intake Total 1352 691 Output Total 0655 1075 Balance -1464 -226 - Physical Examination General/Neuro: alert & oriented x3 Neck: no JVD present Lungs: CTA, unlabored respirations Heart: PMI normal, RRR Abdomen: NT/ND, soft Extremities: + femoral B - Labs Result Diagrams: 03/22/19 05:31 03/22/19 05:31 Troponin/CKMB CK-MB (CK-2) 2.9 ng/mL (0-6.6) 03/19/19 21:59 Troponin I 0.079 ng/mL (< 0.028) H 03/20/19 04:15 - Assessment/Plan Symptomatic VT CAD s/p stent s/p ICD ICD placed yesterday Pt likely to benefit from sotaolol vs amiodarone; leave at discretion of EP Transfer from ICU Home tomorrow?
--- NOTE | 2019-03-23 07:50 | RAD ---
FRONTAL RADIOGRAPH CHEST: Date: 03/23/19 COMPARISON: 03/21/2015. HISTORY: Evaluate chest following cardiac device placement. FINDINGS: The cardiac silhouette is enlarged. There is pulmonary vascular congestion. There is a dual-lead AICD inserted via a left subclavian approach with leads overlying the region of the right atrium and the right ventricle. Shallow inspiration and rotation to the right limits assessment of the perihilar and basilar regions. Increased density in bilateral hilar regions may signify volume loss, infiltrate, or vascular enlargement. Hazy increased density in both lung bases may signify volume los s, infiltrate, or pleural fluid. Recommend PA and lateral imaging of the chest for further assessment. IMPRESSION: Portable chest radiograph as detailed above. Transcribed Date/Time: 03/23/2019 8:53 AM
[2019-03-23] MEDS: Ipratropium Bromide 2.5 ml Neb NEB SCH ×3 (08:14→19:07)
[2019-03-23] MEDS: Mometasone/Formoterol 120 PUFF INHALER INH SCH ×2 (08:17→19:07)
[2019-03-23] MEDS: Clopidogrel Bisulfate 75 MG TAB PO SCH (09:25)
[2019-03-23] MEDS: Losartan 25 MG TAB PO SCH (09:25)
[2019-03-23] MEDS: Pantoprazole 40 MG VIAL IVP SCH ×2 (09:25→21:02)
[2019-03-23] MEDS: Amlodipine 5 MG TAB PO SCH (09:25)
[2019-03-23] MEDS: Potassium Chloride 10 MEQ TAB PO SCH ×2 (09:25→16:26)
[2019-03-23] MEDS: DULoxetine 60 MG CAP PO SCH (09:25)
[2019-03-23] MEDS: Sucralfate 1 GM TAB PO SCH ×2 (09:26→15:05)
--- NOTE | 2019-03-23 09:42 | PRG ---
DATE OF SERVICE: 03/23/2019 SUBJECTIVE: Ms. Davis is doing better, has no complaints, she has had no more V-tach. OBJECTIVE: VITAL SIGNS: Temperature is 98.6, pulse 72, blood pressure 139/78, and O2 saturation 96%. HEENT: Unremarkable. NECK: No JVD. CHEST: Clear to auscultation. CARDIAC: S1 and S2, regular with ectopy. ABDOMEN: Soft and nontender. EXTREMITIES: No edema. ASSESSMENT: Ventricular tachycardia. PLAN: Transfer to telemetry. No further Pulmonary recommendations. We will sign off. Please recall if further assistance needed. Job ID: [id number]
[2019-03-23] MEDS: Sodium Chloride 0.9% 1,000 ML IV SCH (12:27)
--- NOTE | 2019-03-23 13:58 | PRG ---
DATE OF SERVICE: 03/23/2019 SUBJECTIVE: Ms. Davis seems to be doing fair today one day post ICD implant. She has no further dizziness, loss of consciousness. Minimal reaction to the ICD insertion site is seen. OBJECTIVE DATA: VITAL SIGNS: 148/72, heart rate 68, respirations 22, temperature is 98.6 degrees Fahrenheit. GENERAL: Alert and oriented woman in no apparent distress. NECK: Supple. No jugular venous distention. CHEST: Coarse crackles. HEART: Sounds are regular rate and rhythm. No murmur or gallop. ABDOMEN: Benign. Bowel sounds positive. EXTREMITIES: Lower extremities without edema, clubbing, or cyanosis. Left precordial ICD insertion site is without reaction. DATABASE: The EKG today reveals sinus rhythm with right bundle branch block pattern. Marked QT prolongation at 568 msec is noted. Chest x-ray reveal no pneumothorax, density in both lung bases, possible pleural fluid. ASSESSMENT AND PLAN: Ms. Davis is a pleasant 68-year-old woman with history of coronary artery disease with preserved left ventricular ejection fraction, syncopal episodes, not clearly associated with sustained ventricular tachycardia who underwent ICD implantation yesterday. During the ICD implant VT induction was again attempted. She was not inducible for monomorphic VT, but she has received significant amount of amiodarone recently postop. On the other hand we were able to induce ventricular fibrillation by shock on T method. Defibrillator is functioning well to detect and terminated these arrhythmias. This morning the interrogation also reveals adequate function with R-waves noted. Adequate thresholds are seen, 0.5 of 0.4 msec in both chambers. Impedances are good at 399 and 361 ohms respectively. Telemetry strips also revealed no further ventricular tachycardia. Occasional PVCs are noted at times in bigeminal pattern. Again, she continues to have marked QT prolongation, but no Torsades like arrhythmias. Base rate of the pacemaker is set to 70 beats per minute to avoid bradycardia, which could induce Torsades. PLAN: My plan would be at this point, I think it is reasonable to initiate Mexitil on this lady for further prevention of ventricular arrhythmia. Continue monitoring with the ICD. She might benefit from a PVC ablation in the near future after the ICD is settled. Although her QT is prolonged for now there is no proarrhythmia and likely is related to the amiodarone loading. Hopefully with Mexitil her ventricular arrhythmia risk is reduced. ICD is functioning well . We discussed the option of being discharged on this medication regimen. I would also like to obtain the 2D echogram results hence cardiac silhouette enlargement noted even prior to the ICD implantation. Routine followup in 2 weeks for wound check is requested. We will plan outpatient PVC/VT ablation in the future. Job ID: [id number]
[2019-03-23] MEDS: Mexiletine HCl 150 MG CAP PO SCH ×2 (15:05→21:00)
--- NOTE | 2019-03-23 17:03 | CON ---
DATE OF CONSULTATION: I am seeing Mrs. Davis at our [facility] ICU as an electrophysiology life consultant, and her problems are, 1. Sustained ventricular tachycardia associated with syncope and requiring defibrillation and IV amiodarone/lidocaine for suppression. 2. Prior history of syncope and frequent nonsustained VT runs on monitor. 3. EP study from 03/19/2019, demonstrates polymorphic VT run self-terminating nonsustained VT. 4. Right bundle-branch block pattern EKG. 5. History of cryptogenic stroke in the past on cardiac risk empirically. No documented arrhythmias on EP study or on monitors in the past. 6. Risks factors including hyperlipidemia and hypertension. 7. History of COPD. ALLERGIES: NOT SEEN. MEDICATIONS: At home included, 1. Tramadol. 2. Duloxetine. 3. Rosuvastatin. 4. Montelukast. 5. Ezetimibe. 6. Symbicort. 7. Apixaban 5 mg twice a day. 8. Fluticasone. 9. Sucralfate. 10. Metoprolol succinate. 11. Umeclidinium. 12. Losartan-hydrochlorothiazide. 13. Famotidine. 14. Clopidogrel. 15. Dexlansoprazole. SUBJECTIVE: Mrs. Davis was admitted on the with a syncopal spell. She left the hospital and on the way to a restaurant, she passed out. EMS was called. She was found to be in a ventricular tachycardia. Initially transferred to the [facility], had received some defibrillation shocks, but recurrences were noted, in which she required amiodarone, which was later switched to lidocaine. Currently, she is off lidocaine and amiodarone both, maintaining normal rhythm. The patient denies chest pain. No fevers, chills, or cough. No PND, orthopnea, or lower extremity edema. She has fluid overload. No further syncopal spells since admit. No burning, urination, or abdominal discomfort. Rest of 12-point review of systems is otherwise unremarkable. PAST MEDICAL HISTORY: As above. Also includes history of coronary artery disease. She did undergo a circumflex territory stenting by Dr. Najera in last two months. She has a history of preserved LVEF. SOCIAL HISTORY: The patient denies smoking, ETOH, or drug abuse. FAMILY HISTORY: Not contributory. Mother with stroke at age 74. Father passed with a heart attack, age 84. More family members do have coronary artery disease, lung issues, diabetes, strokes, and hypertension runs in the family. Drug addiction. The patient is . OBJECTIVE DATA: VITAL SIGNS: The blood pressure is 120/66, heart rate 80, respirations 14, temperature 99 degrees Fahrenheit. GENERAL: She is alert and oriented woman in no apparent distress. NECK: Supple. Jugular veins not distended. CHEST: Coarse without crackles. HEART: Sounds are regular to rate and rhythm. No murmur or gallop. ABDOMEN: Benign. Bowel sounds positive. EXTREMITIES: Lower extremity without edema, clubbing, or cyanosis. Pulses are adequate. NEUROLOGIC: The patient is nonfocal. MUSCULOSKELETAL: Without joint swelling or deformities. SKIN: Without rash. IMAGING STUDIES: EKGs reviewed. Initial EKG reveals a ventricular tachycardia, which is right bundle inferior axis in morphology. Subsequent EKGs reveal sinus rhythm with no significant conduction delay type of EKG. Possible right bundle-branch block, also with bigeminy PVCs, which are left bundle inferior axis in morphology. Transition in V1 and V2. Also, baseline EKGs revealed QTc of 503. LABORATORY DATA: White count is 8.6, hemoglobin , platelet count is 218. Sodium is 135, potassium is 3.4, BUN is 13, creatinine is 0.92. ASSESSMENT AND PLAN: Mrs. Davis is a pleasant 68-year-old woman, who has a history of coronary artery disease with a recent circumflex territory stenting. No documented history of marked infarction though she has also preserved LV systolic function on outpatient echocardiogram recently. She had issues with severe palpitations, eventual syncopal spell within the last 3 months. She underwent cardiac evaluation by Dr. Najera, eventually referred to me, and we planned to have her undergo an EP study, which was performed, but she was not inducible for ventricular tachycardia on Friday. Loop recorder was inserted. She was discharged home, but while at home, she had a full syncopal spell. EKGs and also loop recorder interrogation revealed frequent ventricular tachycardia episodes, some of which were shock terminated, sounds one time it was terminated. They were clearly correlating to the syncopal spell. She was given amiodarone, but her QT is markedly prolonged and that was stopped. Now, she is here for further arrhythmia management, treated in the ICU, currently the VT episode seems to have subsided. We have discussed potential treatment options. I think antiarrhythmic agents choices are limited. could be used, amiodarone seems to be a limited choice, has marked QT prolongation. On the other hand, I think this lady would benefit from ICD therapy, hence documented ventricular tachycardia episodes. Long-term plans for ablation also could be considered. Risks and benefits of this discussed. She understands and willing to proceed. We will schedule for a near date. Thank you for letting me to participate in the care of this patient. Job ID: [id number]
[2019-03-23] MEDS: Rosuvastatin 20 MG TAB PO SCH (21:01)
[2019-03-23] MEDS: Montelukast Sodium 10 mg Tablet PO SCH (21:02)
[2019-03-24] MEDS: Mexiletine HCl 150 MG CAP PO SCH ×2 (05:17→15:41)
[2019-03-24] MEDS: Ipratropium Bromide 2.5 ml Neb NEB SCH ×2 (07:10→13:45)
[2019-03-24] MEDS: Mometasone/Formoterol 120 PUFF INHALER INH SCH (07:12)
[2019-03-24] MEDS: Clopidogrel Bisulfate 75 MG TAB PO SCH (08:49)
[2019-03-24] MEDS: Amlodipine 5 MG TAB PO SCH (08:49)
[2019-03-24] MEDS: Sucralfate 1 GM TAB PO SCH (08:49)
[2019-03-24] MEDS: Losartan 25 MG TAB PO SCH (08:49)
[2019-03-24] MEDS: DULoxetine 60 MG CAP PO SCH (08:49)
[2019-03-24] MEDS: Pantoprazole 40 MG VIAL IVP SCH (08:50)
--- NOTE | 2019-03-24 13:25 | PDOC.CTH ---
Cardiology Progress Note - Subjective EP PROGRESS NOTE: 03/24/19 Ms. Davis seems to be doing well 2 days post ICD implant. She has no further dizziness, loss of consciousness. Minimal reaction to the ICD insertion site is seen. - Objective Vital Signs Temp Pulse Resp BP BP Pulse Ox 03/24/19 08:49 68 122/65 03/24/19 08:00 97.8 F 68 16 122/65 93 L 03/24/19 07:10 77 16 93 L 03/24/19 04:00 98.3 F 66 12 129/67 96 Weight 174 lb 3 oz 03/23/19 03/24/19 03/25/19 06:59 06:59 06:59 Intake Total 691 1990 Output Total 1075 1450 Balance -384 540 - Physical Examination General/Neuro: alert & oriented x3, NAD Neck: carotid US brisk, no JVD present Lungs: CTA, unlabored respirations Heart: PMI normal, RRR Abdomen: NT/ND, soft Other PE findings: ICD implant site CDI, no hematoma - Telemetry Telemetry Rhythm: SR - Labs Result Diagrams: 03/22/19 05:31 03/22/19 05:31 Troponin/CKMB CK-MB (CK-2) 2.9 ng/mL (0-6.6) 03/19/19 21:59 Troponin I 0.079 ng/mL (< 0.028) H 03/20/19 04:15 - Assessment/Plan ASSESSMENT AND PLAN: Ms. Davis is a pleasant 68-year-old woman with history of coronary artery disease with preserved left ventricular ejection fraction, syncopal episodes, not clearly associated with sustained ventricular tachycardia who underwent ICD implantation yesterday. During the ICD implant VT induction was again attempted. She was not inducible for monomorphic VT, but she has received significant amount of amiodarone recently postop. On the other hand we were able to induce ventricular fibrillation by shock on T method. Defibrillator is functioning well to detect and terminated these arrhythmias. This morning the interrogation also reveals adequate function with R-waves noted. Adequate thresholds are seen, 0.5 & 0.4 msec in both chambers. Impedances are good at 399 and 361 ohms respectively. Telemetry strips also revealed no further ventricular tachycardia. Occasional PVCs were noted at times in bigeminal pattern prior to starting mexiletine but have since quieted. Again, she continues to have marked QT prolongation, but no Torsades like arrhythmias. Base rate of the pacemaker is set to 70 beats per minute to avoid bradycardia, which could induce Torsades. PLAN: My plan would be at this point, continue mexiletine 150mg PO Q8hr for prevention of ventricular arrhythmia. Continue monitoring with the ICD. She might benefit from a PVC ablation in the near future after the ICD is settled. Although her QT is prolonged for now there is no proarrhythmia and likely is related to the recent amiodarone loading. Hopefully with Mexitil her ventricular arrhythmia risk is reduced. ICD is functioning well by device check yesterday. We discussed the option of being discharged on this medication regimen. I would also like to obtain the 2D echogram results hence cardiac silhouette enlargement noted even prior to the ICD implantation. Routine followup in 2 weeks for wound check is requested. We will plan outpatient PVC/VT ablation in the future after ICD has settled. Rx in chart for mexilitine 150mg PO Q8hr and for one week coarse of cephalexin s /p ICD implant.
[2019-03-24 15:39] VITALS: BP 130/67; TEMP 98
[2019-03-24] MEDS: Sodium Chloride 0.9% 1,000 ML IV SCH (15:41)
== END 2019-03-24 15:34 | disposition home or self-care (01) | DRG 227 ==
LOC: ERS 20:58 → CCU 22:00 → 2NO 03-23 10:40
PROVIDERS: ADMIT Hospitalist; ATTEND Hospitalist
PROC: 5A2204Z Restoration of Cardiac Rhythm, Single (ICD-10-PCS; 2019-03-19)
PROC: 0JH608Z Insertion of Defibrillator Generator into Chest Subcutaneous Tissue and Fascia, Open Approach (ICD-10-PCS; principal; 2019-03-22)
PROC: 02HK3KZ Insertion of Defibrillator Lead into Right Ventricle, Percutaneous Approach (ICD-10-PCS; 2019-03-22)
PROC: 02H63KZ Insertion of Defibrillator Lead into Right Atrium, Percutaneous Approach (ICD-10-PCS; 2019-03-22)
PROC: 0JPT02Z Removal of Monitoring Device from Trunk Subcutaneous Tissue and Fascia, Open Approach (ICD-10-PCS; 2019-03-22)
DX: I47.2 Ventricular tachycardia (principal); E87.1 Hypo-osmolality and hyponatremia; I25.10 Atherosclerotic heart disease of native coronary artery without angina pectoris; I10 Essential (primary) hypertension; E78.5 Hyperlipidemia, unspecified; K27.9 Peptic ulcer, site unspecified, unspecified as acute or chronic, without hemorrhage or perforation; Z95.5 Presence of coronary angioplasty implant and graft; I69.320 Aphasia following cerebral infarction; D64.9 Anemia, unspecified; Z79.01 Long term (current) use of anticoagulants; E87.6 Hypokalemia; I45.10 Unspecified right bundle-branch block; J44.9 Chronic obstructive pulmonary disease, unspecified; I69.322 Dysarthria following cerebral infarction; E66.9 Obesity, unspecified; E78.00 Pure hypercholesterolemia, unspecified; Z68.32 Body mass index [BMI] 32.0-32.9, adult; Z96.651 Presence of right artificial knee joint; I25.5 Ischemic cardiomyopathy; Z91.81 History of falling; E87.70 Fluid overload, unspecified
CPT/HCPCS: 33249; 33286; 36005; 36415; 71045; 75820; 80048; 80053; 82553; 83735; 84484; 85025; 85610; 85730; 90471; 90670; 93005; 93010; 93306; 93620; 93621; 93641; 93798; 94640; 96365; 96366; 96375; 96376; 99292; A4353; C1721; C1730; C1764; C1769; C1777; C1898; C9113; G0009; J0282; J0690; J1642; J2001; J2250; J2405; J2704; J3010; J3475; J3480; J3490; J7070; Q0162; Q9967

== ENCOUNTER 2019-05-14 15:48 | Emergency (ER) | payer MEDICARE ==
[~2019-05-14 15:48] MED LIST: ISOVUE-370 76%-LOCM 1 ML ONE
[2019-05-14] MEDS ORDERED: Lidocaine Viscous Sol 2% 15 ml UD Cup ONE (16:22)
[2019-05-14] MEDS ORDERED: Ondansetron PF 4 MG/2 ML Vial ONE ×2 (16:22→17:31)
[2019-05-14] MEDS ORDERED: Mag-Al 1200 mg/1200 mg/30 ML UDCUP ONE (16:22)
[2019-05-14 16:28] LABS: #Basophils 0.1 thou/uL (0.0-0.2); #Eosinphils 0.1 thou/uL (0.0-0.7); #Lymphocytes 1.5 thou/uL (1.20-3.40); #Monocytes 0.8 thou/uL (0.11-0.59); #Neutrophils 8.3 thou/uL (1.40-6.50); %Basophils 0.6 % (0.0-1.0); %Eosinophils 1.1 % (0.0-10.0); %Lymphocytes 13.8 % (21.0-51.0); %Monocytes 7.7 % (0.0-10.0); %Neutrophils 76.8 % (42.0-75.0); Hemoglobin 13.2 g/dL (12.0-16.0); Mean Corpuscular HGB CONC 33.2 g/dL (32.0-36.0); Mean Corpuscular Hemoglobin 29.4 pg (27.0-31.0); Mean Corpuscular Volume 88.4 fL (78.0-98.0); Mean Platelet Volume 9.1 fL (7.4-10.4); Platelet Count 308 thou/uL (130-400); White Blood Cell (WBC) Count 10.9 thou/uL (4.8-10.8)
[2019-05-14 16:52] LABS: ALT (SGPT) 14 U/L (8-55); AST (SGOT) 27 U/L (5-34); Albumin 4.2 g/dL (3.4-4.8); Alkaline Phosphatase 83 U/L (40-150); Anion Gap 14 mmol/L (10-20); BUN (Urea Nitrogen) 16 mg/dL (9.8-20.1); Bilirubin, Total 0.4 mg/dL (0.2-1.2); Calc. Creatinine Clearance 0 mL/min (70-130); Carbon Dioxide 23 mmol/L (23-31); Chloride 105 mmol/L (98-107); Estimated GFR-MDRD 55; Glucose 140 mg/dL (80-115); Lipase 37 U/L (8-78); Potassium 4.6 mmol/L (3.5-5.1); Protein, Total 7.2 g/dL (6.0-8.3); Sodium 137 mmol/L (136-145)
[2019-05-14] MEDS ORDERED: Morphine 4 MG/ML VIAL ONE (17:26)
--- NOTE | 2019-05-14 18:29 | RAD ---
EXAM: CHEST ONE VIEW: 05/14/19 HISTORY: Chest pain. COMPARISON: 03/23/19. Left ICD. Cardiomegaly. Evidence for a very large hiatal hernia probably containing the bulk of the s tomach and possibly slightly more prominent than on 03/23/19 study. No evidence of pneumonia or edema or pleural effusion. IMPRESSION: Cardiomegaly without other acute intrathoracic disease. Large hiatal hernia. This appears to have min imally increased in size from the prior 03/23/19 study. POS: JEN
--- NOTE | 2019-05-14 19:55 | CT ---
EXAM: CT ANGIOGRAM CHEST WITH 3D RENDERING CT ANGIOGRAM ABDOMEN WITH 3D RENDERING 05/14/19 HISTORY: Chest pain, epigastric pain. FINDINGS: No significant acute pulmonary parenchymal process. Some minimal pleural based more chronic appearing changes in the lung bases. No evidence for aortic dissection. No evidence for an aortic aneurysm. Ce ntral pulmonary arteries appear to be free of thrombus. There is a large paraesophageal hiatal hernia with a somewhat distended and dilated stomach filled with fluid and some air but no evidence for ove rt volvulus. Status post cholecystectomy with dilatation of the common bile duct. No renal calculus o r acute obstruction. No evidence for abdominal aortic aneurysm or dissection. IMPRESSION: 1. No evidence for thoracic or abdominal aortic aneurysm or dissection. 2. Distended dilated stomach with an associated paraesophageal large hiatal hernia. No evidence for overt gastric volvulus associated with this. Other findings as above. POS: JEN
== END 2019-05-14 19:56 | disposition home or self-care (01) ==
LOC: ERS 15:48
DX: R07.9 Chest pain, unspecified (principal); K44.9 Diaphragmatic hernia without obstruction or gangrene; R11.2 Nausea with vomiting, unspecified; Z86.73 Personal history of transient ischemic attack (TIA), and cerebral infarction without residual deficits; E78.5 Hyperlipidemia, unspecified; I10 Essential (primary) hypertension; Z79.899 Other long term (current) drug therapy; Z79.01 Long term (current) use of anticoagulants
CPT/HCPCS: 71045; 71275; 80053; 83690; 84484; 85025; 93005; 96374; 96375; 96376; J2270; J2405

== ENCOUNTER 2019-05-26 08:23 | Outpatient (CLI) | payer MEDICARE ==
--- NOTE | 2019-05-26 10:33 | CT ---
CT ABDOMEN AND PELVIS WITH IV CONTRAST 05/26/2019 CLINICAL INFORMATION: Upper abdominal pain and fullness after eating. Vomiting. COMPARISON: CTA abdomen on 05/14/2019 Technique: Multiple contiguous axial CT images are obtained through the abdomen and pelvis with IV contrast. Cor onal reformatted images are provided. FINDINGS: Lower Chest: AICD leads are again seen within the right atrial appendage and right ventricle. There is a large hiatal hernia with the majority of the stomach above the level of the hemidiaphragms with associated organoaxial rotation of the stomach due to the large hiatal hernia. Tiny amount of free fluid is seen adjacent to the stomach on the right adjacent to the hiatal hernia. The hiatal her pepper is incompletely imaged. There is atelectasis present at each lung base related to the hiatal hernia. Vessels: Vascular calcifications are seen in the abdominal aorta and involving the iliac arteries. Abdomen: Portal vein:Patent Gallbladder: Postcholecystectomy changes again seen. Liver: within normal limits. Spleen: within normal limits. Pancreas: within normal limits. Adrenals: within normal limits. Kidneys: An approximately 1 cm fat density lesion is again seen at the anteromedial aspect midportion left kidney again likely reflective of a small angiomyolipoma. The kidneys otherwise demonstrate a normal CT appearance bilaterally. Bowel: There is colonic diverticulosis. A small to moderate amount of retained fecal material is seen within the colon extending from the cecum to the splenic flexure. Loops of small bowel are normal in caliber. Appendix: Not visualized, but there are no secondary signs to suggest appendicitis. Peritoneum: No ascites or free air; no fluid collection. Mesentery and Retroperitoneum: No enlarged mesenteric or retroperitoneal lymph nodes. Abdominal Wall: A subcentimeter hypodense nodule is seen in the right anterolateral adipose soft tiss ues of the pelvis. The exact etiology is uncertain. This area was not imaged on prior CTA exam. Pelvis: Reproductive Organs: There is evidence of hysterectomy. Pelvis within normal limits. Bladder: Decompressed but otherwise grossly within normal limits. Bones: Degenerative changes are seen in the spine. IMPRESSION: 1. Large hiatal hernia with the majority of the stomach above the level of the hemidiaphragms. There is organoaxial rotation/volvulus of the stomach. Positioning of the stomach is stable compared to the study on 05/14/2019. A tiny amount of fluid is seen in the mediastinum adjacent to the hiatal herni a. 2. Cholecystectomy and hysterectomy. 3. Colonic diverticulosis with moderate amount of retained fecal material in the colon extending from cecum to the splenic flexure. 4. Small subcentimeter hypodense nodule within the subcutaneous adipose layer right anterior lower pe lvis of uncertain etiology. 5. Small left renal angiomyolipoma. 6. Above findings discussed with Dr. Lezama on 05/26/2019 at 1029 hours.
--- NOTE | 2019-05-26 11:22 | RAD ---
ESOPHAGOGRAM: Air contrast esophagram performed. INDICATION: Dysphagia. FINDINGS: There is a large fixed diaphragmatic hernia. The entire stomach is above the diaphragm and there is evidence of organoaxial volvulus. This appears to be a paraesophageal hernia. Findings correspond t o the recent CT of 05/26/2019. IMPRESSION: A large fixed diaphragmatic hernia with the entire stomach above the hemidiaphragm. POS: [facility]
== END 2019-05-26 08:24 | disposition home or self-care (01) ==
LOC: CT 08:23
PROVIDERS: ATTEND Family Medicine
DX: R10.10 Upper abdominal pain, unspecified (principal); R13.10 Dysphagia, unspecified; K44.9 Diaphragmatic hernia without obstruction or gangrene; Z90.49 Acquired absence of other specified parts of digestive tract; K57.30 Diverticulosis of large intestine without perforation or abscess without bleeding; D17.71 Benign lipomatous neoplasm of kidney; N94.9 Unspecified condition associated with female genital organs and menstrual cycle
CPT/HCPCS: 74177; 74220

== ENCOUNTER 2020-02-17 09:29 | Inpatient (IN) | payer MEDICARE ==
[~2020-02-17 09:29] MED LIST changes: +Heparin 1,000 UNITS/ML VIAL ONE; -ISOVUE-370 76%-LOCM 1 ML ONE
[2020-02-17] MEDS ORDERED: EPHEDRINE 25 MG/5 ML SYRINGE ONE (10:55)
[2020-02-17] MEDS ORDERED: EPINEPHrine 1 MG/10 ML Abboject SYRINGE ONE (10:55)
[2020-02-17] MEDS ORDERED: Rocuronium Bromide 10 MG/ML (10ML VIAL) ONE (10:55)
[2020-02-17] MEDS ORDERED: PHENYLEPHRINE-NS 100 MCG/ML 10 ML SYRINGE ONE (10:55)
[2020-02-17] MEDS ORDERED: Succinylcholine Chloride 20 MG/ML 10 ml SYRINGE FS ONE (10:55)
[2020-02-17 11:38] VITALS: BMI 32.7
[2020-02-17] MEDS ORDERED: Senokot S 8.6-50 MG TAB PO PRN (12:34)
[2020-02-17] MEDS ORDERED: hydrALAZINE 20 MG/ML VIAL SLOW IVP PRN (12:39)
[2020-02-17] MEDS ORDERED: D5 1/2 NS w/20 mEq KCL 1,000 ML IV SCH (12:45)
[2020-02-17] MEDS ORDERED: Acetaminophen 325 MG TAB PO PRN (13:23)
[2020-02-17] MEDS ORDERED: traMADol HCl 50 MG TAB PO PRN (13:23)
[2020-02-17] MEDS ORDERED: Morphine 2 MG/ML SYRINGE SLOW IVP PRN ×2 (13:31→17:11)
[2020-02-17 13:48] LABS: Lactic Acid 6.3 mmol/L (0.5-2.2)
[2020-02-17 13:53] LABS: ALT (SGPT) 605 U/L (8-55); AST (SGOT) 855 U/L (5-34); Albumin 3.3 g/dL (3.4-4.8); Alkaline Phosphatase 216 U/L (40-110); Anion Gap 19 mmol/L (10-20); BUN (Urea Nitrogen) 19 mg/dL (9.8-20.1); Bilirubin, Total 3.6 mg/dL (0.2-1.2); Calc. Creatinine Clearance 53 mL/min (70-130); Calcium 7.9 mg/dL (7.8-10.44); Carbon Dioxide 16 mmol/L (23-31); Chloride 108 mmol/L (98-107); Estimated GFR-MDRD 42; Globulin 2.2 g/dL (2.4-3.5); Glucose 90 mg/dL (80-115); Lipase 16 U/L (8-78); Potassium 3.5 mmol/L (3.5-5.1); Protein, Total 5.5 g/dL (6.0-8.3); Sodium 139 mmol/L (136-145)
--- NOTE | 2020-02-17 13:56 | HP ---
PRIMARY CARE PHYSICIAN: Dr. Per Lezama. CHIEF COMPLAINT: The patient is a transfer from [facility]. HISTORY OF PRESENT ILLNESS: The patient is a 69-year-old female, who was admitted yesterday at [facility] with chest/abdominal discomfort. She was monitored overnight. Her abdominal pain got worse this morning. She was found to have AST over 1000 and ALT over 900. CT scan of the abdomen showed dilatation of the biliary collecting system. She was evaluated by Dr. Dia, who recommended the patient to be transferred to this facility for ERCP. The patient may require mechanical ventilation after the procedure due to chronic large hiatal hernia with volvulus. PAST MEDICAL HISTORY: 1. Hypertension. 2. Hyperlipidemia. 3. Chronic anemia. 4. History of CVA. 5. Atrial fibrillation, on anticoagulation. 6. Chronic large hiatal hernia. 7. Coronary artery disease. 8. History of asthma. PAST SURGICAL HISTORY: 1. Cholecystectomy. 2. Cardiac stent placement. 3. Tonsillectomy. 4. Hysterectomy. ALLERGIES: NO KNOWN DRUG ALLERGIES. FAMILY HISTORY: Positive for SD in the father at the age of 80. Mother with CVA. SOCIAL HISTORY: The patient currently lives at home. No smoking, alcohol, or drug use. MEDICATIONS: Current home medications to be verified. We will try to obtain the accurate list from the family. REVIEW OF SYSTEMS: All other review of systems was reviewed and was found negative. The patient at this time continues to have epigastric discomfort. PHYSICAL EXAMINATION: VITAL SIGNS: This morning showed temperature 100.8, heart rate of 105, respirations of 25, blood pressure of 119/72, O2 saturation of 93% on face mask. GENERAL: A 69-year-old female, in no apparent distress. HEENT: Head, atraumatic and normocephalic. Sclerae are anicteric. Moist mucous membranes. No oral lesion. NECK: Supple. No JVD appreciated. No carotid bruit. LUNGS: Showed diminished air entry at bilateral bases with minimal wheezing. No accessory muscle use. HEART: S1 and S2 present. No rubs or gallops. ABDOMEN: Soft. There is epigastric tenderness with mild right upper quadrant tenderness. No rebound or guarding. No costovertebral angle tenderness. EXTREMITIES: No edema or calf tenderness. NEUROLOGIC: No new focal deficit. The patient has chronic expressive aphasia from the old stroke. PSYCHIATRIC: The patient is alert, awake, and oriented x3. Normal affect. SKIN: Warm and dry. LYMPH NODES: No palpable lymph nodes in the neck. LABORATORY FINDINGS: ABGs this morning showed pH of 7.4 with pCO2 of 29, pO2 of 95, bicarbonate of 17.7. Lactic acid this morning was 3.4. PT of 12.4, INR 1.2. Hemoglobin 10.9 with neutrophil of 98%. Sodium was 140, potassium 3.5, chloride 105, bicarb 25, creatinine 1.4. AST of 787, ALT of over 1000. Lipase was 92 yesterday. Alkaline phosphatase 258. CT scan showed dilatation of the biliary collecting system with large hiatal hernia. Telemetry monitoring by my review showed sinus rhythm. IMPRESSION: 1. Sepsis suspected due to cholangitis. 2. Acute hypoxic respiratory failure secondary to #1. 3. Chronic large hiatal hernia with volvulus. 4. Atrial fibrillation. Anticoagulation on hold. 5. Hypertension. 6. History of cerebrovascular accident with residual expressive aphasia. 7. Mild persistent asthma. 8. Dyslipidemia. 9. Gastroesophageal reflux disease. 10. Depression without any suicidal ideation. 11. History of cholecystectomy. PLAN: The patient is currently admitted to intensive care unit. Her D-dimer and BNP were normal. Troponins were negative as well at the other facility. The patient will undergo ERCP today. We will empirically start her on meropenem. We will add GI prophylaxis. We will hold all of her blood pressure medications. We will start her on IV fluids. Recheck labs in a.m. I discussed the case with Dr. Dia. Blood cultures have been sent. The family has been updated. Full code. DPOA - daughter. The patient understands the above plan of care. The patient will require 2 to 3 days for stabilization. Job ID: [id number] MTDD
[2020-02-17 14:02] LABS: Band 72 % (5-11); Hemoglobin 11.3 g/dL (12.0-16.0); Hypochromia SLIGHT = 6-15 cells (100X) (0-5/hpf); Lymphocytes 2 % (21-51); MDiff Complete? YES; Mean Corpuscular HGB CONC 30.6 g/dL (32.0-36.0); Mean Corpuscular Volume 88.1 fL (78.0-98.0); Mean Platelet Volume 9.1 fL (7.4-10.4); Monocytes 4 % (0-10); Neutrophil 22 % (42-75); Platelet Count 140 thou/uL (130-400); Platelet Morphology Comment Appears Adequate; Polychromasia SLIGHT = 2-3 cells (100X) (0-2/hpf); RBC Distribution Width 14.7 % (11.5-14.5); Red Blood Cell (RBC) Count 4.17 mill/uL (4.20-5.40); Reflex for Review?? YES; White Blood Cell (WBC) Count 8.6 thou/uL (4.8-10.8)
[2020-02-17] MEDS: NS 0.9% w/ 20 MEQ KCL 1,000 ML/1,000 ML BAG IV SCH (14:05)
[2020-02-17] MEDS: MEROPENEM 1 GM/50 ML 1 GM in Premix Bag 1 BAG IVPB SCH ×2 (14:06→20:46)
[2020-02-17] MEDS ORDERED: Fentanyl 100 MCG/2 ML VIAL ONE (14:19)
[2020-02-17] MEDS ORDERED: Midazolam HCl 2 mg/2 ml Vial ONE (14:19)
[2020-02-17] MEDS ORDERED: Ketamine 50 MG/ML (10ML VIAL) ONE (14:19)
[2020-02-17] MEDS ORDERED: Iothalamate Meglumine 60% 30 ML VIAL FS ONE ×2 (14:21)
[2020-02-17] MEDS ORDERED: Indomethacin 50 MG SUPP ONE (14:21)
[2020-02-17] MEDS ORDERED: Albumin 5% 250 ML ONE (14:57)
[2020-02-17] MEDS ORDERED: Albumin 5% 500 ML ONE (14:57)
[2020-02-17] MEDS ORDERED: Norepinephrine 4 MG/4 ML VIAL ONE (15:26)
--- NOTE | 2020-02-17 16:36 | PRG ---
DATE OF SERVICE: 02/17/2020 SUBJECTIVE: This is just a followup note on Ms. Davis. For full GI consult from earlier today, please see dictated consultation at [facility] with the same date of service, 02/17/2020. Ms. Davis is still a little bit confused. In talking with her sister who lives with her, she does have an expressive aphasia prior to stroke. She also felt, talking with her on the phone as she was not able to go to the hospital, that her sister was getting sicker. In talking with the hospitalist, Dr. Doll, after I had seen her there this morning, they did move her to the ICU. Her ABG showed a pH of 7.4, PO2 is 95, and a pCO2 of 25. Her lipase has actually come down a little bit. Her lactic acid was 4. She did have a fever of 101.6 and was slightly hypotensive. She was given a 2 L fluid bolus before transfer to this facility. Here, blood pressure 120/69 and then dropped to 90/80, pulse is 113, temperature is 98.4 here. She is tender in the right upper quadrant and upper abdomen. She was having a bout when I saw her. At 1325 hours, white count was 8.7, hemoglobin 11.3, platelet count 140, 72 bands, and 22 segs. Sodium 130, potassium 3.5, chloride 108, bicarb 16, anion gap is 15, creatinine 1.25, BUN 19, lactic acid 6.3, bilirubin is up to 6.3, AST at 850, ALT 605, alkaline phosphatase 216, and lipase was 16. Blood cultures from the outside facility are pending. ASSESSMENT: 1. Chest pain with negative myocardial infarction. 2. Massively dilated intrahepatic ducts, which has been somewhat chronic on previous studies. 3. Paraesophageal hernia with organoaxial volvulus. 4. Previous cholecystectomy. PLAN: I have concern that this patient has ascending cholangitis. The other possibilities could be an infarction of the liver, less likely intestine. CAT scan images showed no signs of this yesterday evening on her admission. With the urgent nature of cholangitis, we will plan to proceed with ERCP here. I have talked with the patient's sister and she understands the need to do that. She understands the urgency. I have explained to her the risks including perforation, bleeding, reaction to medication, aspiration, and pancreatitis. There is also increased risk that we may not be able to get to the ampulla based on the patient's large hernia, which has been chronic. This was going to be fixed in the past, but could not be as last year when they were talking about fixing it, she had to have a cardiac cath and stents placed and the decision was made to hold off after that. I have discussed the case with Anesthesia, ICU, and the admitting physician as well as the ICU nursing staff as well. Job ID: [id number]
[2020-02-17] MEDS ORDERED: Sodium Bicarb 50 MEQ/50 ML Abboject 8.4% SYRINGE ONE (16:59)
[2020-02-17 17:08] LABS: Actual Bicarbonate (HCO3a) 11.5 mEq/L (22-28); Base Excess (BEa) -17.5 mEq/L (-2.0 to +3.0); CO2 Tension 39.9 mmHg (35.0-45.0); Calcium, Ionized 1.05 mmol/L (1.12-1.30); Carboxyhemoglobin (COHb) 0.6 gm% (0.0-3.0); Hemoglobin (Hb) 10.1 g/dL (12.0-16.0); O2 Tension (PaO2) 87.7 mmHg (> 80.0); Potassium - ABG Lab 4.46 mmol/L (3.70-5.30); Puncture Site RR; pH, Arterial 7.08 (7.35-7.45)
[2020-02-17 17:09] LABS: ALV-art Gradient 361.525 (0-20)
[2020-02-17] MEDS ORDERED: Fentanyl BOLUS 250 ML IVPB PRN (17:11)
[2020-02-17] MEDS ORDERED: DISCONTINUE PREVIOUS NARCOTIC PAIN MEDICATIONS AND BENZODIAZEPINES FS SCH (17:11)
[2020-02-17] MEDS ORDERED: Propofol 1,000 MG/100 ML VIAL IV PRN (17:11)
[2020-02-17] MEDS ORDERED: fentaNYL Citrate/PF 2,000 MCG in Sodium Chloride 0.9% 60 ML IV SCH (17:11)
[2020-02-17] MEDS ORDERED: Lorazepam 2 MG/ML VIAL SLOW IVP PRN (17:11)
[2020-02-17] MEDS ORDERED: Propofol BOLUS 1,000 MG/100 ML VIAL IV PRN (17:11)
[2020-02-17] MEDS ORDERED: Sodium Bicarb 50 MEQ/50 ML Abboject 8.4% SYRINGE IVP SCH (17:15)
--- NOTE | 2020-02-17 17:19 | RAD ---
CHEST ONE VIEW: 02/17/20 HISTORY: Intubation. COMPARISON: Radiograph 05/14/19. FINDINGS: The patient is intubated with endotracheal tube tip just below the level of the clavicles in good pos ition. Very large sliding hiatal hernia with the majority of the stomach within the thoracic cavity. Compressive atelectasis in left lung base. No pneumothorax. IMPRESSION: Satisfactory location of the endotracheal tube. POS: HOME
--- NOTE | 2020-02-17 17:26 | CON ---
DATE OF CONSULTATION: 02/17/2020 HISTORY OF PRESENT ILLNESS: Ms. Davis is 69-year-old female, transferred over from [facility] for a hepatic and possible cholangitis. They are concerned that maybe she is beginning to decompensate. I examined her after arrival and she had no complaints other than not feeling good. She is slightly dysarthric with regard to her speech. PAST MEDICAL HISTORY: Remarkable for 1. Hypertension. 2. Lipid disorder. 3. Large hiatal hernia. 4. History of CVA. 5. History of anticoagulation for atrial fibrillation. 6. History of coronary artery disease. 7. History of asthma. 8. History of cholecystectomy. 9. History of coronary artery stenting. 10. History of tonsillectomy. 11. Status post hysterectomy. SOCIAL HISTORY: Nonsmoker and nondrinker. FAMILY HISTORY: Positive for vascular disease. ALLERGIES: NO REPORTED ALLERGIES. MEDICATIONS: Been reviewed. REVIEW OF SYSTEMS: Otherwise negative except for minimal epigastric discomfort. PHYSICAL EXAMINATION: GENERAL: She is in no distress. VITAL SIGNS: Heart rate was 103, respiratory rate was in the 30s, blood pressure is 94/55. HEAD AND NECK: Unremarkable. LUNGS: Clear. HEART: Regular rate and rhythm. ABDOMEN: Soft and minimally tender in her upper quadrant on the right. EXTREMITIES: Without clubbing, cyanosis, or edema. LABORATORY DATA: White count 8.6, hemoglobin 11.3, platelets 140. Sodium 139, potassium 3.5, chloride 108, bicarb 16 making her anion gap 15, creatinine 1.25. Lactate was 6.3. Bilirubin is 3.6, AST 855, ALT 605, alkaline phosphatase 216, albumin 3.3. IMPRESSION: Possible cholangitis, for ERCP. At this point in time, there is no clinical indication that she needs intubation or ventilatory support, although if it is a complicated procedure, she may need intubation. We will be happy to follow the other physicians caring for her. TIME SPENT: This is a 70 minutes consult, 50% of the time was spent on the unit coordinating care. Job ID: [id number]
[2020-02-17 17:32] LABS: Actual Bicarbonate (HCO3a) 13.5 mEq/L (22-28); Base Excess (BEa) -9.2 mEq/L (-2.0 to +3.0); Calcium, Ionized 0.92 mmol/L (1.12-1.30); Carboxyhemoglobin (COHb) 0.4 gm% (0.0-3.0); Hemoglobin (Hb) 9.5 g/dL (12.0-16.0); O2 Tension (PaO2) 120.3 mmHg (> 80.0); Potassium - ABG Lab 4.26 mmol/L (3.70-5.30); pH, Arterial 7.43 (7.35-7.45)
[2020-02-17 17:40] LABS: CO2 Tension 20.8 mmHg (35.0-45.0); Puncture Site RB
[2020-02-17] MEDS ORDERED: Norepinephrine 8 MG/0.9% NS 250 ML IVPB SCH (17:54)
[2020-02-17] MEDS ORDERED: Hydrocortisone Sod Succ/PF 500 mg/4 ml Vial SLOW IVP SCH (18:00)
[2020-02-17] MEDS ORDERED: Sodium Chloride 0.9% 1,000 ML IV SCH (18:00)
[2020-02-17] MEDS: Pantoprazole 40 MG VIAL IVP SCH (20:47)
[2020-02-17] MEDS ORDERED: Famotidine/PF 20 mg/2ml Vial SLOW IVP SCH (21:00)
[2020-02-17] MEDS ORDERED: Famotidine 20 MG TAB PO SCH (21:00)
[2020-02-18] MEDS: NS 0.9% w/ 20 MEQ KCL 1,000 ML/1,000 ML BAG IV SCH ×2 (00:33→06:23)
--- NOTE | 2020-02-18 00:58 | OP ---
DATE OF PROCEDURE: 02/17/2020 PRE-PROCEDURE DIAGNOSES: 1. Elevated LFTs, fever, early sepsis, suspected ascending cholangitis. 2. 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 ANESTHESIA: General endotracheal anesthesia. POST-PROCEDURE DIAGNOSES: 1. Ascending cholangitis, status post sphincterotomy with removal of multiple stones. 2. Large periampullary diverticula. 3. Paraesophageal hiatal hernia with chronic gastric volvulus, unable to reduce with EGD scope and ultimately, EGD was used to place a guidewire down into the duodenum 2nd portion, which we used to follow down with the side-viewing duodenoscope to advance through the paraesophageal hernia to the duodenum for the ERCP to be performed. PROCEDURE IN DETAIL: After the patient's family was informed of the risks, benefits, and possible complications of ERCP including perforation, reaction to medication, pancreatitis, increased risk of perforation because of paraesophageal hernia and chronic gastric volvulus and risk of because of ongoing sepsis. Informed consent was obtained. The patient was brought to the endoscopy suite, where she was intubated promptly. She became hypotensive and was resuscitated with more IV fluids and started on pressors. We had actually started the procedure, but transiently stopped when she became hypotensive, so that she could be resuscitated by anesthesia. Once that was done, the forward viewing scope was advanced through the esophagus into the stomach, where a large paraesophageal hernia was encountered. It was difficult to find a way out of the paraesophageal hernia. We were able to ultimately advance to the antrum and the duodenum, where a large periampullary diverticulum was noted. The ampulla could not be viewed and there was no bile noted in the duodenum. There was some food matter in the stomach that was above the diaphragm and this was suctioned and irrigated away. At this time, the scope was removed and knowing the anatomy, I have tried to advance the side-viewing duodenoscope down into the antrum and into the duodenum, but could not get out of the paraesophageal hernia, so therefore we removed the side-viewing scope and replaced the forward-viewing scope and after a little bit maneuver again down into the duodenum, where a guidewire from [place] was left in place. The EGD scope was then removed and the side-viewing duodenoscope was advanced down adjacent to the guidewire as a path, which we followed and we were able to follow down to forward and retroflexion to get around the paraesophageal hernia into the duodenum. Prior to doing this, we did attempt to reduce the gastric volvulus with the forward-viewing EGD scope, but this has been chronic and it would not reduce. Once the ampulla was brought into view, cannulation was obtained first of the pancreatic duct. A guidewire was then placed and then, we did not to see pus come out of the biliary duct. A 2nd Glidewire was then used to cannulate the common bile duct and the catheter was advanced over this. Once we had good access into that duct, we exchanged the Glidewire out for a Jagwire into the common bile duct and made a sphincterotomy about 1 cm in length. Multiple stones and pus came out with mostly being black pigment stones. We then swept the duct with a 12 to 15 mm balloon and then a 15 to 18 mm balloon as the balloon was about 18 mm wide. Then, we irrigated the pus out. Once all the pus was clear and the stones were removed, occlusion cholangiogram was performed showing good opacification of the duct and no filling defects. There may have been a few small stones in the long remnant of the cystic duct stump, but these were small, could not get into the cystic duct stump from it, but once we got all the stones of the common bile duct, we could see that there was good biliary drainage, both endoscopically and radiographically. There was good hemostasis. The scope was removed. The stomach was decompressed. The patient was brought back to the ICU and intubated on pressors. These findings were discussed with ICU physician, nurses and the patient's family. Job ID: [id number]
[2020-02-18 04:25] LABS: ALT (SGPT) 428 U/L (8-55); AST (SGOT) 540 U/L (5-34); Albumin 3.2 g/dL (3.4-4.8); Alkaline Phosphatase 163 U/L (40-110); Bilirubin, Total 3.8 mg/dL (0.2-1.2); Protein, Total 5.1 g/dL (6.0-8.3)
[2020-02-18 04:31] LABS: Anion Gap 26 mmol/L (10-20); BUN (Urea Nitrogen) 27 mg/dL (9.8-20.1); Calc. Creatinine Clearance 33 mL/min (70-130); Calcium 6.9 mg/dL (7.8-10.44); Carbon Dioxide 9 mmol/L (23-31); Chloride 112 mmol/L (98-107); Estimated GFR-MDRD 25; Glucose 85 mg/dL (80-115); Lipase 45 U/L (8-78); Potassium 4.6 mmol/L (3.5-5.1); Sodium 142 mmol/L (136-145)
[2020-02-18] MEDS: MEROPENEM 1 GM/50 ML 1 GM in Premix Bag 1 BAG IVPB SCH ×3 (04:42→21:13)
[2020-02-18 05:58] LABS: Band 35 % (5-11); Hemoglobin 10.8 g/dL (12.0-16.0); Lymphocytes 3 % (21-51); MDiff Complete? YES; Mean Corpuscular HGB CONC 31.7 g/dL (32.0-36.0); Mean Corpuscular Hemoglobin 28.5 pg (27.0-31.0); Mean Corpuscular Volume 89.9 fL (78.0-98.0); Mean Platelet Volume 10.9 fL (7.4-10.4); Metamyelocyte 5 % (0-0); Monocytes 1 % (0-10); Myelocyte 3 % (0-0); Neutrophil 53 % (42-75); Platelet Count 154 thou/uL (130-400); RBC Distribution Width 15.1 % (11.5-14.5); Red Blood Cell (RBC) Count 3.79 mill/uL (4.20-5.40); White Blood Cell (WBC) Count 23.8 thou/uL (4.8-10.8)
[2020-02-18 07:45] LABS: Lactic Acid 4.2 mmol/L (0.5-2.2)
[2020-02-18] MEDS ORDERED: Sodium Bicarb 50 MEQ/50 ML Abboject 8.4% SYRINGE IVP SCH (08:30)
[2020-02-18] MEDS: Pantoprazole 40 MG VIAL IVP SCH ×2 (09:41→21:13)
[2020-02-18] MEDS: Sodium Chloride 0.9% (PF) 10 ML VIAL FS PRN (09:41)
[2020-02-18] MEDS: Saccharomyces boulardii 250 MG CAP PO SCH (09:42)
[2020-02-18] MEDS: Sodium Chloride 0.45% 1,000 ML IV SCH ×2 (09:45→17:30)
--- NOTE | 2020-02-18 09:48 | PRG ---
DATE OF SERVICE: 02/18/2020 SUBJECTIVE: Ms. Davis improved overnight. She came out of endoscopy after her bile duct was opening, drained, hypotensive, and extremely acidemic. Followup blood gas showed pH up from 7.08 to 7.4. Blood gas this morning shows a pH 7.43. OBJECTIVE: GENERAL: She is wide awake. Moving all extremities equally. She is no longer mottled. LUNGS: Clear. HEART: Regular rhythm. ABDOMEN: Soft. EXTREMITIES: Without edema. NEUROLOGIC: Nonfocal. LABORATORY DATA: Sodium 142, potassium 4.6, chloride 112, bicarb 9, BUN 27, creatinine 1.98. Liver enzymes are coming down. Bilirubin is still 3.8. IMPRESSION: Cholangitis with clinical sepsis, improving. I felt she is a candidate for extubation. This has been done successfully. She is in no distress. She will continue with volume resuscitation also, although probably should be switched to half-normal saline given her component of hyperchloremia. CRITICAL CARE TIME: 30 minutes. Job ID: [id number]
--- NOTE | 2020-02-18 10:02 | RAD ---
PORTABLE CHEST: Date: 02/18/2020 HISTORY: Respiratory distress. COMPARISON: Prior day's study. FINDINGS: Heart size appears borderline in size. A large hiatal hernia is seen. The atelectatic changes in the left base have improved as compared to that prior study. IMPRESSION: Improvement to the left lower lobe atelectasis. POS: [facility]
[2020-02-18 13:40] LABS: Anion Gap 20 mmol/L (10-20); BUN (Urea Nitrogen) 37 mg/dL (9.8-20.1); Calc. Creatinine Clearance 28 mL/min (70-130); Calcium 6.8 mg/dL (7.8-10.44); Carbon Dioxide 18 mmol/L (23-31); Chloride 112 mmol/L (98-107); Estimated GFR-MDRD 20; Glucose 158 mg/dL (80-115); Potassium 4.6 mmol/L (3.5-5.1); Sodium 145 mmol/L (136-145)
[2020-02-18 13:42] LABS: Lactic Acid 4.3 mmol/L (0.5-2.2)
--- NOTE | 2020-02-18 15:24 | PDOC.HOSPP ---
- Subjective Encounter Date: 02/18/20 Encounter Time: 14:30 Subjective: Patient seen and examined for Sepsis. Off pressors. Extubated. No abd pain. No new complaints. No overnight events - Objective Vital Signs & Weight: Vital Signs (12 hours) Pulse Resp BP Pulse Ox 02/18/20 10:04 96 02/18/20 08:38 15 02/18/20 08:00 15 02/18/20 06:43 107 H 116/85 02/18/20 06:00 30 H 02/18/20 04:00 30 H Weight Weight 177 lb 0.499 oz Most Recent Monitor Data Heart Rate from ECG 109 NIBP 133/81 NIBP BP-Mean 98 Respiration from ECG 28 SpO2 94 I&O: 02/17/20 02/18/20 02/19/20 06:59 06:59 06:59 Intake Total 3345.0 Output Total 425 Balance 2920.0 Result Diagrams: 02/18/20 03:19 02/18/20 13:13 Additional Labs: Microbiology 02/17/20 13:25 Venous blood - Left Hand Blood Culture - Preliminary Klebsiella oxytoca Laboratory Tests 02/18/20 02/18/20 02/18/20 03:19 03:19 03:19 Carbon Dioxide 9 L* Lactic Acid 6.0 H* Total Bilirubin 3.8 H Direct Bilirubin 3.0 H AST 540 H ALT 428 H Alkaline Phosphatase 163 H 02/18/20 07:10 Carbon Dioxide Lactic Acid 4.2 H* Total Bilirubin Direct Bilirubin AST ALT Alkaline Phosphatase Radiology Reviewed by me: Yes (CXR - reviewed) EKG Reviewed by me: Yes (Tele ST) Hospitalist ROS - Review of Systems Respiratory: denies: cough, dry, shortness of breath, hemoptysis, SOB with excertion, pleuritic pain, sputum, wheezing, other Cardiovascular: denies: chest pain, palpitations, orthopnea, paroxysmal noc. dyspnea, edema, light headedness, other Gastrointestinal: denies: nausea, vomiting, abdominal pain, diarrhea, constipation, melena, hematochezia, other - Medication Medications: Active Medications Generic Name Dose Route Start Last Admin Trade Name Freq PRN Reason Stop Dose Admin Fentanyl Citrate 2,000 mcg/ 100 mls @ 0 mls/hr 02/17/20 17:11 02/17/20 22:21 Sodium Chloride IV 03/18/20 17:11 100 mls INF MARY Administration Protocol Per Protocol Norepinephrine Bitartrate 250 mls @ 0 mls/hr 02/17/20 17:54 02/18/20 02:08 Levophed IVPB 250 mls INF MARY Administration Protocol Titrate Sodium Chloride 1,000 mls @ 125 mls/hr 02/18/20 09:30 02/18/20 09:45 1/2 Normal Saline IV 1,000 mls .Q8H MARY Administration Pantoprazole Sodium 40 mg 02/17/20 21:00 02/18/20 09:41 Protonix IVP 40 mg Q12HR MARY Administration Propofol 1,000 mg 02/17/20 17:11 02/17/20 17:16 Diprivan IV 03/18/20 17:11 1,000 mg INF PRN Administration TO ACHIEVE GOAL RASS Protocol Saccharomyces Boulardii 250 mg 02/18/20 09:00 02/18/20 09:42 Florastor PO Not Given DAILY MARY Sodium Chloride 10 ml 02/17/20 13:07 02/18/20 09:41 Normal Saline Pf FS 10 ml PRN PRN Administration RECONSTITUTION - Exam General Appearance: NAD Neck: supple, no JVD Heart: RRR, no gallops, no rubs, normal peripheral pulses Respiratory: no wheezes, no rales, no ronchi Gastrointestinal: soft, non-distended, normal bowel sounds, no guarding, no rigidity Extremities: no cyanosis, no clubbing Neurological: no new deficit Psychiatric: normal affect, A&O x 3 Hosp A/P - Plan DVT proph w/SCDs 1. Severe Sepsis/Septic shock due to cholangitis/Klebsiella bacteremia - POA 2. Acute hypoxic respiratory failure secondary to #1 s/p extubation 02/17 3. Chronic large hiatal hernia. 4. Atrial fibrillation. Anticoagulation on hold. 5. Hypertension. 6. History of CVA with residual expressive aphasia. 7. Mild persistent asthma. 8. Dyslipidemia. 9. GERD. 10. Depression. 11. History of cholecystectomy. PLAN: Cont Meropenem Cont IV 1/2 NS Start diet when ok with GI Off pressors AM labs received bicarb this AM Check lactic acid in AM Cont other meds
--- NOTE | 2020-02-18 18:19 | PRG ---
DATE OF SERVICE: SUBJECTIVE: Ms. Davis has been extubated today. She has had excellent care by the ICU nurses report. Her urine output is improved to 25 to 30 mL an hour. She had one stool today with little bit of blood around her regular bowel movement. She started to take liquids. MEDICATIONS: 1. She is on p.r.n. fentanyl. 2. Hydralazine. 3. Ativan. 4. Meropenem. 5. She is off the Levophed. 6. Protonix 40 IV q.12. 7. Sodium half-normal at 125 an hour. OBJECTIVE: VITAL SIGNS: Pulse 108, blood pressure 90/63, respirations 18, and temperature 99.2. GENERAL: She is resting in bed, lying on her left side. She has some expressive aphasia, but appears comfortable. She is breathing easily. HEENT: Conjunctivae and sclerae are clear. Mucous membranes are pink and moist. LUNGS: Clear. ABDOMEN: Soft, nontender without rebound or guarding. EXTREMITIES: No clubbing, cyanosis, or edema. LABORATORY DATA: White count 23,000, hemoglobin 10.8, platelet count 154, 53 segs, and 35% bands. Sodium 145, potassium 4.6, BUN and creatinine are 37 and 2.42. Lactic acid was 4.3 today. Bilirubin is 3.8, direct bilirubin is 3. AST and ALT were 540 and 428. Alk phos is 163. Lipase is 45. Blood cultures showed Klebsiella. ASSESSMENT: 1. Ascending cholangitis from Klebsiella and choledocholithiasis, status post emergent ERCP yesterday with decompression of bile duct and removal of stones, improving liver function tests. 2. Bacteremia, Klebsiella from above. 3. Sepsis with renal dysfunction, metabolic acidosis, and respiratory failure yesterday. She has been extubated today. Her urine output is improving. She does have increasing BUN and creatinine, but is getting adequately hydrated. PLAN: We will continue IV fluids and antibiotics. Follow along with you. Repeat labs tomorrow. Job ID: [id number]
[2020-02-18] MEDS: Albumin 25% 25 GM/100 ML BOT IVPB SCH (19:24)
[2020-02-19] MEDS: Albumin 25% 25 GM/100 ML BOT IVPB SCH (00:08)
[2020-02-19 01:38] LABS: Hemoglobin 6.2 g/dL (12.0-16.0)
[2020-02-19] MEDS ORDERED: Ondansetron PF 4 MG/2 ML Vial IVP SCH (02:45)
[2020-02-19] MEDS: Sodium Chloride 0.45% 1,000 ML IV SCH ×3 (02:59→23:02)
--- NOTE | 2020-02-19 03:11 | PDOC.CNTRL ---
Central Line Procedure Note - Procedure Date: 02/19/20 Time: 02:15 - PreProcedure Diagnosis: 1. Lower GI bleeding requiring transfusion with poor peripheral access 2. Severe Sepsis/Septic shock due to cholangitis/Klebsiella bacteremia 3. Acute hypoxic respiratory failure secondary to #1 s/p extubation 02/17 4. Chronic large hiatal hernia. 5. Atrial fibrillation. Anticoagulation on hold. 6. Hypertension. 7. History of CVA with residual expressive aphasia. 8. Mild persistent asthma. 9. Dyslipidemia. 10. GERD. 11. Depression. 12. History of cholecystectomy. - PostProcedure Diagnosis: 1. Lower GI bleeding requiring transfusion s/p placement L femoral central line 2. same as above - Anesthesia Anesthesia: 1% Lidocaine without epinephrine - Description Focused site: femoral vein: Left Ultrasound guidance: Yes Patient tolerated procedure: well (without complications) Procedure in Details: INDICATION: Lower GI bleed requiring blood product transfusion with poor peripheral access available RESIDENT: Ruchi/Kaye ATTENDING PHYSICIAN: Dr. Metzger, present during entire procedure Ultrasound Used: Y CONSENT: Consent was obtained from patient prior to the procedure. Indications, risks, and benefits were explained at length, patient voiced agreement and understanding and wished to proceed. PROCEDURE SUMMARY: A time out was performed. Hands were washed immediately prior to the procedure. Surgical cap, mask with protective eyewear, sterile gown and sterile gloves were worn throughout the procedure. The LEFT inguinal region was prepped using chlorhexidine scrub and draped in sterile fashion using a full drape and sterile probe cover. The femoral pulse was identified. Anesthesia was achieved using 1% lidocaine. Under ultrasound guidance, the introducer needle was inserted medial to the femoral artery, inferior to the inguinal crease and into the femoral vein. Venous blood was withdrawn. The syringe was removed and a guidewire was advanced into the introducer needle. A small incision was made at the skin surface with a scalpel and the introducer needle was exchanged for a dilator over the guidewire. After appropriate dilation was obtained, the dilator was exchanged over the wire for a triple lumen central venous catheter. The wire was removed and the catheter was sutured in place. A sterile dressing with antimicrobial gel was place over the insertion site. The patient tolerated the procedure without any hemodynamic compromise. At time of procedure completion, all ports aspirated and flushed properly. Estimated blood loss was 5cc. Addendum - Attending - Attending Attestation Date/Time: 02/21/20 1820 I, Benny Metzger MD, personally evaluated the patient and discussed indications for the procedure described by Dr. Traore on 02/19/20.. I directly supervised and participated in the CVC placement and I agree with the description of procedure as documented above without any addition or exceptions.
[2020-02-19 03:38] LABS: Prothrombin Time 22.2 sec (12.0-14.7)
[2020-02-19 03:50] LABS: ALT (SGPT) 237 U/L (8-55); AST (SGOT) 298 U/L (5-34); Albumin 3.3 g/dL (3.4-4.8); Alkaline Phosphatase 136 U/L (40-110); Anion Gap 17 mmol/L (10-20); BUN (Urea Nitrogen) 49 mg/dL (9.8-20.1); Bilirubin, Direct 1.8 mg/dL (0.1-0.3); Bilirubin, Total 2.5 mg/dL (0.2-1.2); Calc. Creatinine Clearance 22 mL/min (70-130); Carbon Dioxide 19 mmol/L (23-31); Chloride 112 mmol/L (98-107); Estimated GFR-MDRD 15; Glucose 90 mg/dL (80-115); Potassium 3.9 mmol/L (3.5-5.1); Protein, Total 4.8 g/dL (6.0-8.3); Sodium 144 mmol/L (136-145)
[2020-02-19 03:51] LABS: Lactic Acid 2.1 mmol/L (0.5-2.2)
[2020-02-19 06:53] LABS: Hemoglobin 8.1 g/dL (12.0-16.0); Mean Corpuscular HGB CONC 33.5 g/dL (32.0-36.0); Mean Corpuscular Hemoglobin 29.3 pg (27.0-31.0); Mean Corpuscular Volume 87.5 fL (78.0-98.0); RBC Distribution Width 13.9 % (11.5-14.5); Red Blood Cell (RBC) Count 2.75 mill/uL (4.20-5.40); White Blood Cell (WBC) Count 15.5 thou/uL (4.8-10.8)
[2020-02-19 06:57] LABS: Band 31 % (5-11); Eosinophils 1 % (0-10); Large Platelets SLIGHT; Lymphocytes 2 % (21-51); MDiff Complete? YES; Mean Platelet Volume 11.1 fL (7.4-10.4); Monocytes 4 % (0-10); Neutrophil 62 % (42-75); Platelet Count 78 thou/uL (130-400); Platelet Morphology Comment Appears Decreased
--- NOTE | 2020-02-19 08:14 | RAD ---
EXAM: Portable chest PROVIDED CLINICAL HISTORY: Respiratory insufficiency COMPARISON: None FINDINGS: Interval extubation. Additional significant interval change with respect to the prior examination is not apparent. IMPRESSION: As above.
[2020-02-19] MEDS ORDERED: Ondansetron PF 4 MG/2 ML Vial IVP PRN (08:35)
[2020-02-19] MEDS: Pantoprazole 40 MG VIAL IVP SCH ×2 (08:51→20:35)
[2020-02-19] MEDS: Sodium Chloride 0.9% (PF) 10 ML VIAL FS PRN (08:51)
[2020-02-19] MEDS: Saccharomyces boulardii 250 MG CAP PO SCH (09:00)
[2020-02-19] MEDS: Morphine 2 MG/ML SYRINGE SLOW IVP PRN ×4 (09:14→23:00)
--- NOTE | 2020-02-19 09:16 | PRG ---
DATE OF SERVICE: 02/19/2020 SUBJECTIVE: Ms. Davis looks miserable. She is lying in partial position. She has a hard time expressing herself and seems to be in fairly significant abdominal pain. She is having some bright red blood per rectum. OBJECTIVE: VITAL SIGNS: Her temperature is 98.1, pulse 124, blood pressure 175/108. Intake for 24 hours 3168, output 972. She had 2 units of packed red blood cells and 2 units of fresh frozen plasma infused yesterday. HEENT: Unremarkable. NECK: No JVD. LUNGS: Clear anteriorly and posteriorly. CARDIAC: S1 and S2. Tachycardic. ABDOMEN: Diffuse mild tenderness. No rebound. EXTREMITIES: No overt edema. LABORATORY DATA: White blood cell count 15.5, hematocrit 24.1, and platelet count 78. INR is 2.0. Sodium 144, potassium 3.9, chloride 112, CO2 of 19, BUN 49, creatinine 3.0, glucose 90, AST 298, ALT 237, total bilirubin is 2.5. Chest x-ray shows a significant hiatal hernia with almost all stomach up in the chest. ASSESSMENT: 1. Acute cholangitis. 2. Bright red bleeding per rectum. 3. Anemia due to blood loss. 4. Sepsis syndrome. 5. Question ischemic colitis versus diverticulitis. PLAN: 1. Continue supportive care with antibiotics, fluid resuscitation, antiemetics, pain control. 2. Further disposition per GI. Job ID: [id number]
[2020-02-19] MEDS: MEROPENEM 1 GM/50 ML 1 GM in Premix Bag 1 BAG IVPB SCH ×2 (09:48→20:35)
--- NOTE | 2020-02-19 11:26 | PRG ---
DATE OF SERVICE: 02/19/2020 SUBJECTIVE: Ms. Davis is resting comfortable now. She received 1 mg of Ativan for abdominal pain. She is not able to tell me much now, but the nurse tells me that was upper abdomen, yesterday she was having almost tenesmus pain in her rectum and down low for she passed some stools with a little bit of blood. However, last night she passed a large bloody stool about midnight. Her hemoglobin was checked and her hemoglobin had dropped from 10.8 yesterday morning down to 6.2. She was given 2 units of blood and her hemoglobin is 8.1 this morning. Her white count has come down [place] 434[address] yesterday in the morning to [address]92 this morning[place] [address] [place] [address]. Her INR was checked and was 2 in the light of the fact she has been on Plavix and Eliquis. She has been given 2 units of FFP now. Temperature max 98.1, blood pressure 156/83, pulse 124. She is off pressors. Yesterday, after ERCP on the , her heart rate came down as low as to 100. In's and out's 3136 and 2164 with urine output of 972 yesterday, the day before it was 423. OBJECTIVE: GENERAL: She is resting in bed now. She does have an expressive aphasia. She is able to tell me her upper stomach hurts. The nurse notes she has had some dry heaves and a little bit of blood in the mouth. ABDOMEN: Quiescent. She has mild epigastric tenderness without rebound or guarding. RECTAL: Reveals some old maroon blood, but no fresh blood. LABORATORY DATA: INR was 2 this morning. White count 15.5, hemoglobin 8.1, platelet count 78,000, bands 31%. Sodium 144, potassium 3.9, chloride 112, bicarb 19, it was 18 yesterday, anion gap is 15, BUN is 49, up from 37 yesterday, 19 on admission. Creatinine is 3, up from 1.25 on admission, 2.4 yesterday. Bilirubin is 2.5, down from 3.8. AST and ALT are 298 and 237, down from 540 and 420. Alkaline phosphatase was 136, down from 163. Cortisol on admission was normal. Blood cultures noted yesterday grew Klebsiella. ASSESSMENT: 1. Ascending cholangitis with sepsis and bacteremia, improving after ERCP on the . 2. 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 This precludes any NG tube placement. 3. Gastrointestinal bleeding. This is likely either from ischemia from at the time of her presentation and subsequent emergent ERCP versus bleeding from her sphincterotomy related to her sepsis and coagulation dysfunction or from her stomach related to her volvulus, although there was no stomach bleeding at the time of endoscopy 2 days ago. 4. Abdominal pain. This concerns me for ischemia and/or perforation. Clinically, her fever has come down. Her white count has come down, but she does remain tachycardic. Her blood pressure is stable and urine output is good, so I think that is less likely. I think she would deteriorate rapidly if that was the case. She is a poor candidate to go downstairs for a CT at this time as she was not able to lay still. She has just been sedated within past 5 to 10 minutes. 5. Acute renal failure, likely related to septic shock. Urine output is improving. Hopefully we will see improvement in renal function in the next several days. 6. Thrombocytopenia, likely related to DIC from septic shock. level is in adequate range. For the bleeding, we will give her a unit of platelets in light of the fact that she has been on Plavix. She is actively bleeding. PLAN: 1. Complete transfusion of a unit of FFP. 2. Monitor H and H q.6 hours. 3. A unit of platelets. 4. Continue antibiotics. 5. Continue IV fluids. 6. If the patient has signs of ongoing hemorrhage, will need a repeat endoscopy. 7. If the patient has no bleeding, but ongoing severe pain, we will need a CAT scan. This may require sedation and intubation, have discussed with the patient's ICU nurse, Critical Care doctor and the patient's son on the phone today. Job ID: [id number]
[2020-02-19 12:20] LABS: INR-International Normal Ratio 1.3; PTT 34.2 SEC (22.9-36.1); Prothrombin Time 16.4 sec (12.0-14.7)
[2020-02-19 12:51] LABS: Band 61 % (5-11); Eosinophils 2 % (0-10); Hemoglobin 6.8 g/dL (12.0-16.0); Lymphocytes 3 % (21-51); MDiff Complete? YES; Mean Corpuscular HGB CONC 33.9 g/dL (32.0-36.0); Mean Corpuscular Hemoglobin 29.4 pg (27.0-31.0); Mean Corpuscular Volume 86.8 fL (78.0-98.0); Mean Platelet Volume 9.5 fL (7.4-10.4); Monocytes 5 % (0-10); Neutrophil 29 % (42-75); Platelet Count 107 thou/uL (130-400); Platelet Morphology Comment Appears Decreased; Polychromasia SLIGHT = 2-3 cells (100X) (0-2/hpf); RBC Distribution Width 13.8 % (11.5-14.5); Red Blood Cell (RBC) Count 2.32 mill/uL (4.20-5.40); White Blood Cell (WBC) Count 13.8 thou/uL (4.8-10.8)
--- NOTE | 2020-02-19 15:44 | PDOC.HOSPP ---
- Subjective Encounter Date: 02/19/20 Encounter Time: 13:30 Subjective: Patient seen and examined for Sepsis/GIB. Overnight events noted - Central line placed with PRBC/FFP transfusion for GIB. Feels gen weak. Maroon stool per RN. Nauseas earlier. - Objective Vital Signs & Weight: Vital Signs (12 hours) Temp Pulse Resp BP Pulse Ox 02/19/20 11:30 98.4 F 133 H 26 H 155/81 H 95 02/19/20 11:15 98.7 F 130 H 24 H 161/72 H 96 02/19/20 11:00 98.7 F 131 H 28 H 145/79 H 94 L 02/19/20 10:45 98.4 F 129 H 26 H 166/78 H 98 02/19/20 10:30 98.5 F 120 H 28 H 155/71 H 94 L 02/19/20 10:04 98.7 F 126 H 24 H 164/74 H 96 02/19/20 04:00 98.1 F 02/19/20 03:57 98.6 F 123 H 22 H 154/82 H 96 Weight Weight 190 lb 0.615 oz Most Recent Monitor Data Heart Rate from ECG 121 NIBP 157/83 NIBP BP-Mean 107 Respiration from ECG 16 SpO2 93 I&O: 02/18/20 02/19/20 02/20/20 06:59 06:59 06:59 Intake Total 3345.0 3136.8 740 Output Total 425 972 Balance 2920.0 2164.8 740 Result Diagrams: 02/19/20 11:45 02/19/20 03:15 Additional Labs: Microbiology 02/17/20 13:25 Venous blood - Left Hand Blood Culture - Preliminary NO GROWTH AT 48 HOURS 02/17/20 13:25 Venous blood - Left Hand Blood Culture - Preliminary Klebsiella oxytoca Radiology Reviewed by me: Yes (CXR - no infiltrate) EKG Reviewed by me: Yes (Tele ST) Hospitalist ROS - Review of Systems Respiratory: denies: cough, dry, shortness of breath, hemoptysis, SOB with excertion, pleuritic pain, sputum, wheezing, other Cardiovascular: denies: chest pain, palpitations, orthopnea, paroxysmal noc. dyspnea, edema, light headedness, other - Medication Medications: Active Medications Generic Name Dose Route Start Last Admin Trade Name Freq PRN Reason Stop Dose Admin Meropenem 1 gm/ Device 50 mls @ 100 mls/hr 02/18/20 21:00 02/19/20 09:48 IVPB 50 mls Q12HR MARY Administration Sodium Chloride 1,000 mls @ 80 mls/hr 02/19/20 08:35 02/19/20 08:59 1/2 Normal Saline IV 1,000 mls .[id number] MARY Administration Morphine Sulfate 2 mg 02/19/20 08:36 02/19/20 14:13 Morphine SLOW IVP 2 mg Q4H PRN Administration Pain Ondansetron HCl 4 mg 02/19/20 08:35 02/19/20 08:35 Zofran IVP 4 mg Q6H PRN Administration Nausea/Vomiting Pantoprazole Sodium 40 mg 02/17/20 21:00 02/19/20 08:51 Protonix IVP 40 mg Q12HR MARY Administration Saccharomyces Boulardii 250 mg 02/18/20 09:00 02/19/20 09:00 Florastor PO Not Given DAILY MARY Sodium Chloride 10 ml 02/17/20 13:07 02/19/20 08:51 Normal Saline Pf FS 10 ml PRN PRN Administration RECONSTITUTION - Exam General Appearance: ill appearing Heart: no gallops, no rubs, normal peripheral pulses Heart - other findings: tachycardic Respiratory: no wheezes, no rales, no ronchi, normal chest expansion Gastrointestinal: soft, no guarding, no rigidity Gastrointestinal - other findings: mild gen tenderness, BS + Extremities: no cyanosis, no clubbing, no edema Neurological: no new deficit Psychiatric: normal affect, A&O x 3 Hosp A/P - Plan DVT proph w/SCDs 1. Severe Sepsis/Septic shock due to cholangitis/Klebsiella bacteremia - POA 2. Acute hypoxic respiratory failure secondary to #1 s/p extubation 02/17 3. GI bleed with acute blood loss anemia 4. Thrombocytopenia s/p platelet transfusion 5. Hypertension. 6. Metabolic acidosis/Lactic acidosis 7. Atrial fibrillation. Anticoagulation on hold. 8. Dyslipidemia. 9. GERD. 10. Depression. 11. Mild persistent asthma/Chronic large hiatal hernia/History of CVA with residual expressive aphasia. PLAN: Cont Meropenem with IVF Cont IV PPI [facility] input appreciated for central line placement Off pressors Monitor Q6hr AM labs including lactic acid and LFTs Cont other meds Cont CCU monitoring
[2020-02-19 16:00] LABS: Hemoglobin 7.4 g/dL (12.0-16.0)
[2020-02-19 17:03] LABS: Bacteria/HPF None Seen HPF (None Seen); Bilirubin Negative (Negative); Blood, Urine 2+ (Negative); Clarity Clear (Clear); Glucose, Urine (Dipstick) Normal (Negative); Leukocyte Negative Leu/uL (Negative); Nitrite Negative (Negative); Protein, Urine (Dipstick) 30 mg/dL (Neg-Trace); Squamous Epithelial 0-3 HPF (0-3); Urobilinogen Normal mg/dL (Less than 2)
[2020-02-19 18:16] LABS: Hemoglobin 6.7 g/dL (12.0-16.0); Platelet Count 86 thou/uL (130-400)
[2020-02-19] MEDS ORDERED: Furosemide 20 MG/2 ML VIAL SLOW IVP SCH (19:30)
[2020-02-20 00:01] LABS: Hemoglobin 7.9 g/dL (12.0-16.0); Platelet Count 81 thou/uL (130-400)
[2020-02-20] MEDS ORDERED: Lorazepam 2 MG/ML VIAL SLOW IVP PRN (02:33)
[2020-02-20 04:24] LABS: INR-International Normal Ratio 1.1; PTT 31.7 SEC (22.9-36.1); Prothrombin Time 14.1 sec (12.0-14.7)
[2020-02-20 04:30] LABS: Reticulocyte Count 1.2 % (0.5-1.5)
[2020-02-20 04:35] LABS: Lactic Acid 0.9 mmol/L (0.5-2.2)
[2020-02-20 04:38] LABS: ALT (SGPT) 183 U/L (8-55); AST (SGOT) 236 U/L (5-34); Alkaline Phosphatase 265 U/L (40-110); Anion Gap 16 mmol/L (10-20); BUN (Urea Nitrogen) 45 mg/dL (9.8-20.1); Bilirubin, Direct 4.3 mg/dL (0.1-0.3); Bilirubin, Total 5.8 mg/dL (0.2-1.2); Calc. Creatinine Clearance 24 mL/min (70-130); Carbon Dioxide 23 mmol/L (23-31); Chloride 108 mmol/L (98-107); Estimated GFR-MDRD 16; Glucose 90 mg/dL (80-115); Potassium 3.7 mmol/L (3.5-5.1); Protein, Total 4.8 g/dL (6.0-8.3); Sodium 143 mmol/L (136-145)
[2020-02-20 04:41] LABS: Band 21 % (5-11); Eosinophils 1 % (0-10); Hemoglobin 7.7 g/dL (12.0-16.0); Lymphocytes 4 % (21-51); MDiff Complete? YES; Mean Corpuscular HGB CONC 33.7 g/dL (32.0-36.0); Mean Corpuscular Hemoglobin 29.2 pg (27.0-31.0); Mean Corpuscular Volume 86.6 fL (78.0-98.0); Mean Platelet Volume 10.8 fL (7.4-10.4); Monocytes 1 % (0-10); Neutrophil 73 % (42-75); Platelet Count 75 thou/uL (130-400); Platelet Morphology Comment Appears Decreased; RBC Distribution Width 13.5 % (11.5-14.5); Red Blood Cell (RBC) Count 2.63 mill/uL (4.20-5.40)
--- NOTE | 2020-02-20 08:40 | PRG ---
DATE OF SERVICE: 02/20/2020 SUBJECTIVE: The patient had a good night. She is sleeping comfortably. She had no acute complaints. OBJECTIVE: VITAL SIGNS: Temperature is 98.7, pulse 103, blood pressure 115/85. HEENT: Unremarkable. NECK: No adenopathy or JVD. LUNGS: Clear anteriorly. CARDIOVASCULAR: S1, S2 regular. ABDOMEN: Nontender to palpation. EXTREMITIES: No edema. LABORATORY DATA: White blood cell count 13, hematocrit 22.8, and platelet count 75. INR 1.1, PTT 31.7. Sodium 143, potassium 3.7, chloride 108, CO2 of 23, BUN 45, creatinine 2.9, glucose 90, AST 236, ALT 193, total bilirubin is 5.8. Cultures growing out Klebsiella oxytocin. ASSESSMENT: 1. Ascending cholangitis. 2. Bright red bleeding per rectum-now stable. 3. Anemia due to blood loss. 4. Sepsis syndrome from Klebsiella-sensitive to current antibiotics. PLAN: 1. Continue supportive care with close monitoring of patient's H and H. 2. Continue IV antibiotics. 3. Continue slow gentle hydration with half-normal saline. 4. Okay by me if the patient transfers to [facility]. Job ID: [id number]
[2020-02-20] MEDS: MEROPENEM 1 GM/50 ML 1 GM in Premix Bag 1 BAG IVPB SCH ×2 (09:30→20:30)
[2020-02-20] MEDS: Pantoprazole 40 MG VIAL IVP SCH ×2 (09:32→20:30)
[2020-02-20] MEDS: Saccharomyces boulardii 250 MG CAP PO SCH (09:33)
[2020-02-20] MEDS: Sodium Chloride 0.45% 1,000 ML IV SCH (10:25)
--- NOTE | 2020-02-20 13:04 | PRG ---
DATE OF SERVICE: 02/20/2020 SUBJECTIVE: Ms. Davis actually denies any abdominal pain today. The nurse states she is still having some seepage of old blood from her rectum, but not though which she was having before. OBJECTIVE: VITAL SIGNS: Temperature is 99.2, pulse 107, blood pressure 136/81. At 6 a.m. this morning, ins were 2590 and outs were 4835. Urine output 4835 yesterday. ASSESSMENT: 1. Ascending cholangitis with Klebsiella, improving. 2. Gastrointestinal bleed, likely from post sphincterotomy, now stable and resolving after FFP and platelets. 3. Chronic anticoagulation for heart failure and prior history of coronary artery disease and atrial fibrillation, on hold. 4. Sepsis syndrome, improving on current antibiotics. 5. Renal failure, markedly improved. 6. Abdominal pain, resolved. PLAN: Continue supportive care, close monitoring of hemoglobin and hematocrit. If the patient remains stable, can move out of the ICU tomorrow. Job ID: [id number]
--- NOTE | 2020-02-20 17:08 | PDOC.HOSPP ---
- Subjective Encounter Date: 02/20/20 Encounter Time: 14:30 Subjective: Patient seen and examined for Sepsis. Abd pain improving. Feels weak. No new complaints. No overnight events - Objective Vital Signs & Weight: Vital Signs (12 hours) Temp Pulse Ox 02/20/20 16:00 99.6 F 02/20/20 12:00 98.7 F 02/20/20 08:00 99.2 F 96 Weight Weight 175 lb 11.335 oz Most Recent Monitor Data Heart Rate from ECG 104 NIBP 160/86 NIBP BP-Mean 110 Respiration from ECG 19 SpO2 93 I&O: 02/19/20 02/20/20 02/21/20 06:59 06:59 06:59 Intake Total 3136.8 2590 1142 Output Total 972 4835 1325 Balance 2164.8 -2245 -183 Result Diagrams: 02/20/20 10:01 02/20/20 03:55 Additional Labs: Accuchecks 02/20/20 02/19/20 12:11 23:53 POC Glucose 90 106 Laboratory Tests 02/20/20 03:55 Total Bilirubin 5.8 H Direct Bilirubin 4.3 H AST 236 H ALT 183 H Alkaline Phosphatase 265 H EKG Reviewed by me: Yes (Tele SR) Hospitalist ROS - Review of Systems Respiratory: denies: cough, dry, shortness of breath, hemoptysis, SOB with excertion, pleuritic pain, sputum, wheezing, other Cardiovascular: denies: chest pain, palpitations, orthopnea, paroxysmal noc. dyspnea, edema, light headedness, other - Medication Medications: Active Medications Generic Name Dose Route Start Last Admin Trade Name Freq PRN Reason Stop Dose Admin Meropenem 1 gm/ Device 50 mls @ 100 mls/hr 02/18/20 21:00 02/20/20 09:30 IVPB 50 mls Q12HR MARY Administration Sodium Chloride 1,000 mls @ 80 mls/hr 02/19/20 08:35 02/20/20 10:25 1/2 Normal Saline IV 1,000 mls .[id number] MARY Administration Morphine Sulfate 2 mg 02/19/20 08:36 02/19/20 23:00 Morphine SLOW IVP 2 mg Q4H PRN Administration Pain Ondansetron HCl 4 mg 02/19/20 08:35 02/19/20 08:35 Zofran IVP 4 mg Q6H PRN Administration Nausea/Vomiting Pantoprazole Sodium 40 mg 02/17/20 21:00 02/20/20 09:32 Protonix IVP 40 mg Q12HR MARY Administration Saccharomyces Boulardii 250 mg 02/18/20 09:00 02/20/20 09:33 Florastor PO 250 mg DAILY MARY Administration Sodium Chloride 10 ml 02/17/20 13:07 02/19/20 08:51 Normal Saline Pf FS 10 ml PRN PRN Administration RECONSTITUTION - Exam General Appearance: ill appearing General - other findings: jaundice Heart: RRR, no gallops Respiratory: no wheezes, no ronchi Gastrointestinal: non-tender, non-distended Extremities: no cyanosis, no clubbing Neurological: no new deficit Psychiatric: normal affect, A&O x 3 Hosp A/P - Plan DVT proph w/SCDs 1. Severe Sepsis/Septic shock due to cholangitis/Klebsiella bacteremia. Off pressors 2. Acute hypoxic respiratory failure secondary to above - s/p extubation 02/17 3. GI bleed with acute blood loss anemia 4. Thrombocytopenia s/p platelet transfusion 5. Hypertension. 6. Metabolic acidosis/Lactic acidosis 7. Atrial fibrillation. Anticoagulation on hold. 8. Dyslipidemia. 9. GERD. 10. Depression. 11. Mild persistent asthma/Chronic large hiatal hernia/History of CVA with residual expressive aphasia. PLAN: Cont Meropenem Cont IV PPI Monitor HH AM labs Cont other meds Cont CCU monitoring
[2020-02-20 18:04] LABS: Hemoglobin 8.1 g/dL (12.0-16.0); Platelet Count 60 thou/uL (130-400)
[2020-02-21] MEDS: Sodium Chloride 0.45% 1,000 ML IV SCH ×2 (01:51→16:38)
[2020-02-21 05:13] LABS: Lactic Acid 0.8 mmol/L (0.5-2.2)
[2020-02-21 05:15] LABS: Anion Gap 17 mmol/L (10-20); BUN (Urea Nitrogen) 44 mg/dL (9.8-20.1); Calc. Creatinine Clearance 24 mL/min (70-130); Calcium 7.9 mg/dL (7.8-10.44); Carbon Dioxide 21 mmol/L (23-31); Chloride 101 mmol/L (98-107); Estimated GFR-MDRD 17; Glucose 79 mg/dL (80-115); Magnesium 1.9 mg/dL (1.6-2.6); Sodium 136 mmol/L (136-145)
[2020-02-21 05:19] LABS: ALT (SGPT) 141 U/L (8-55); AST (SGOT) 135 U/L (5-34); Alkaline Phosphatase 262 U/L (40-110); Bilirubin, Direct 2.1 mg/dL (0.1-0.3); Bilirubin, Total 2.9 mg/dL (0.2-1.2); Phosphorus 2.6 mg/dL (2.3-4.7); Protein, Total 4.9 g/dL (6.0-8.3)
[2020-02-21 06:31] LABS: Band 19 % (5-11); Eosinophils 5 % (0-10); Hemoglobin 8.1 g/dL (12.0-16.0); Lymphocytes 6 % (21-51); MDiff Complete? YES; Mean Corpuscular HGB CONC 33.8 g/dL (32.0-36.0); Mean Corpuscular Hemoglobin 29.3 pg (27.0-31.0); Mean Corpuscular Volume 86.6 fL (78.0-98.0); Monocytes 7 % (0-10); Myelocyte 1 % (0-0); Neutrophil 62 % (42-75); Nucleated RBC 1 % (0); Platelet Count 49 thou/uL (130-400); Platelet Morphology Comment Appears Decreased; RBC Distribution Width 13.6 % (11.5-14.5); Red Blood Cell (RBC) Count 2.77 mill/uL (4.20-5.40); White Blood Cell (WBC) Count 9.6 thou/uL (4.8-10.8)
--- NOTE | 2020-02-21 11:47 | PDOC.HOSPP ---
- Subjective Encounter Date: 02/21/20 Encounter Time: 07:30 Subjective: awake, oriented well no sob or abd pain or nausea - Objective Vital Signs & Weight: Vital Signs (12 hours) Temp Pulse Ox 02/21/20 08:00 98.4 F 97 02/21/20 04:00 98.5 F 02/21/20 00:00 98.3 F Weight Weight 181 lb 10.574 oz Most Recent Monitor Data Heart Rate from ECG 95 NIBP 149/76 NIBP BP-Mean 100 Respiration from ECG 21 SpO2 99 I&O: 02/20/20 02/21/20 02/22/20 06:59 06:59 06:59 Intake Total 5767 7835 Output Total 1979 3075 375 Balance -2245 -596 -375 Result Diagrams: 02/21/20 04:11 02/21/20 04:11 Additional Labs: Accuchecks 02/21/20 02/20/20 02/20/20 02:05 17:11 12:11 POC Glucose 73 93 90 Hospitalist ROS - Medication Medications: Active Medications Generic Name Dose Route Start Last Admin Trade Name Freq PRN Reason Stop Dose Admin Meropenem 1 gm/ Device 50 mls @ 100 mls/hr 02/18/20 21:00 02/20/20 20:30 IVPB 50 mls Q12HR MARY Administration Sodium Chloride 1,000 mls @ 80 mls/hr 02/19/20 08:35 02/21/20 01:51 1/2 Normal Saline IV 1,000 mls .[id number] MARY Administration Morphine Sulfate 2 mg 02/19/20 08:36 02/19/20 23:00 Morphine SLOW IVP 2 mg Q4H PRN Administration Pain Ondansetron HCl 4 mg 02/19/20 08:35 02/19/20 08:35 Zofran IVP 4 mg Q6H PRN Administration Nausea/Vomiting Pantoprazole Sodium 40 mg 02/17/20 21:00 02/20/20 20:30 Protonix IVP 40 mg Q12HR MARY Administration Saccharomyces Boulardii 250 mg 02/18/20 09:00 02/20/20 09:33 Florastor PO 250 mg DAILY MARY Administration Sodium Chloride 10 ml 02/17/20 13:07 02/19/20 08:51 Normal Saline Pf FS 10 ml PRN PRN Administration RECONSTITUTION - Exam General Appearance: awake alert Eye: PERRL, anicteric sclera ENT: no oropharyngeal lesions, dry oral mucosa Neck: supple, no JVD Heart: RRR, no murmur Respiratory: no wheezes, no rales Gastrointestinal: soft, non-tender, non-distended, normal bowel sounds Extremities: no cyanosis, no edema Neurological: cranial nerve grossly intact, no focal deficits Psychiatric: normal affect, A&O x 3 Hosp A/P (1) Sepsis Code(s): A41.9 - SEPSIS, UNSPECIFIED ORGANISM Status: Acute Qualifiers: Sepsis acute organ dysfunction status: with acute organ dysfunction Acute renal failure type: with acute tubular necrosis Severe sepsis shock status: with septic shock (2) Ascending cholangitis Code(s): K83.09 - OTHER CHOLANGITIS Status: Acute (3) Elevated LFTs Code(s): R79.89 - OTHER SPECIFIED ABNORMAL FINDINGS OF BLOOD CHEMISTRY Status : Acute (4) Bacteremia Code(s): R78.81 - BACTEREMIA Status: Acute (5) FLOYD (acute kidney injury) Code(s): N17.9 - ACUTE KIDNEY FAILURE, UNSPECIFIED Status: Acute (6) Metabolic acidosis Code(s): E87.2 - ACIDOSIS Status: Acute (7) Chronic a-fib Code(s): I48.20 - CHRONIC ATRIAL FIBRILLATION, UNSPECIFIED Status: Chronic (8) Acute blood loss anemia Code(s): D62 - ACUTE POSTHEMORRHAGIC ANEMIA Status: Acute (9) GI bleed Code(s): K92.2 - GASTROINTESTINAL HEMORRHAGE, UNSPECIFIED Status: Acute Qualifiers: GI bleed type/associated pathology: unspecified gastrointestinal hemorrhage type Qualified Code(s): K92.2 - Gastrointestinal hemorrhage, unspecified - Plan has 2/2 klebsiella oxytoca bacteremia s/p ercp with sphincterotomy and removal of stones 02/17/2020 has recieved total of 3 prbc, 2 ffp, 1 platelet this admission is going for bleeding scan and likely colonoscopy/egd based on scan results hold off feeding her continue protonix, meropenem, morphine prn, iv fluids replace electrolytes lft's are slowly trending down OOB to chair and mobilize as tolerated with PT
--- NOTE | 2020-02-21 13:58 | NM ---
Nuclear medicine GI bleeding scan: 02/21/2020 HISTORY: 69-year-old female with GI bleeding TECHNIQUE: 27 mCi of technetium 99m-tagged erythrocytes injected IV. Anterior view dynamic scintigraphy of abdomen for 91 minutes. FINDINGS: There is no evidence of active gastrointestinal bleeding. IMPRESSION: Negative.
[2020-02-21] MEDS: MEROPENEM 1 GM/50 ML 1 GM in Premix Bag 1 BAG IVPB SCH (14:27)
[2020-02-21] MEDS: Pantoprazole 40 MG VIAL IVP SCH ×2 (16:38→20:47)
[2020-02-21] MEDS: Saccharomyces boulardii 250 MG CAP PO SCH (16:38)
--- NOTE | 2020-02-21 16:45 | PRG ---
DATE OF SERVICE: 02/21/2020 SUBJECTIVE: Oscar Davis had some GI bleeding over the weekend. This was felt to be from her sphincterotomy. Her hemoglobin has been 8 g all day yesterday and 8.1 this morning. Nuclear bleeding scan was negative. OBJECTIVE: VITAL SIGNS: Stable. She is not tachycardic. Blood pressure 156/82 after lunch today. She is afebrile. She is deemed stable to move out of Critical Care Unit. Job ID: [id number]
--- NOTE | 2020-02-21 17:36 | PRG ---
DATE OF SERVICE: 02/21/2020 SUBJECTIVE: Ms. Davis has had two small stools today with some pink blood per the nurse. She is in for a tagged scan now. She denies any shortness of breath or abdominal pain. She actually feels much better and we would like to start eating if she can. OBJECTIVE: VITAL SIGNS: Blood pressure 149/76, pulse 95, temperature is 98. DIAGNOSTIC DATA: White count 9.6, hemoglobin 8.1 and stable, platelet count 49,000. Sodium 136, potassium 3, chloride 101, bicarb 21, anion gap 14, BUN 44, creatinine 2.7. Total bilirubin is down to 2.9 from 5.8, AST and ALT are 135 and 141, alkaline phosphatase 262. Blood culture, Klebsiella oxytoca, pansensitive. A tagged red blood cell scan is pending. On my observation, nuclear medicine, so far appears negative. ASSESSMENT: 1. Cholangitis, improving, Klebsiella oxytoca, pansensitive. 2. Gastrointestinal bleeding, likely related to her sphincterotomy, the blood was pretty red and maroon throughout. This time, she did receive 3 units of blood. Her hemoglobin has been stable now for the past 2 days. Her last transfusion was on 02/18 at 1800 hours. It is always possible that she has had some lower gastrointestinal bleeding related to ischemic colitis as she got very hypotensive and almost arrested during her emergent ERCP for the ascending cholangitis. 3. Sepsis, resolving. 4. Gram-negative bacteremia as above, pansensitive. 5. Thrombocytopenia, this may be related to sepsis, but that is resolving. This maybe related to her medications. If it is felt it is related to her antibiotics, she could probably be switched to Levaquin at this point in time. PLAN: If there are any signs of bleeding on her tagged scan, we will proceed with endoscopy. Otherwise, we will continue to observe. Start her on a diet. Job ID: [id number]
[2020-02-21] MEDS ORDERED: Meropenem 500 MG in Sodium Chloride 0.9% 100 ML IVPB SCH (21:00)
[2020-02-22] MEDS: Sodium Chloride 0.45% 1,000 ML IV SCH ×2 (02:37→07:21)
[2020-02-22 05:15] LABS: ALT (SGPT) 108 U/L (8-55); AST (SGOT) 92 U/L (5-34); Albumin 2.8 g/dL (3.4-4.8); Alkaline Phosphatase 221 U/L (40-110); Anion Gap 13 mmol/L (10-20); BUN (Urea Nitrogen) 38 mg/dL (9.8-20.1); Bilirubin, Direct 1.3 mg/dL (0.1-0.3); Bilirubin, Total 2.1 mg/dL (0.2-1.2); Calc. Creatinine Clearance 29 mL/min (70-130); Carbon Dioxide 24 mmol/L (23-31); Chloride 100 mmol/L (98-107); Estimated GFR-MDRD 20; Glucose 95 mg/dL (80-115); Magnesium 1.8 mg/dL (1.6-2.6); Phosphorus 1.9 mg/dL (2.3-4.7); Potassium 2.9 mmol/L (3.5-5.1); Protein, Total 4.7 g/dL (6.0-8.3); Sodium 134 mmol/L (136-145)
[2020-02-22 05:29] LABS: Band 15 % (5-11); Eosinophils 9 % (0-10); Hemoglobin 8.3 g/dL (12.0-16.0); Lymphocytes 24 % (21-51); MDiff Complete? YES; Mean Corpuscular HGB CONC 34.7 g/dL (32.0-36.0); Mean Corpuscular Hemoglobin 29.5 pg (27.0-31.0); Mean Corpuscular Volume 85.1 fL (78.0-98.0); Mean Platelet Volume 8.4 fL (7.4-10.4); Monocytes 8 % (0-10); Myelocyte 2 % (0-0); Neutrophil 42 % (42-75); Nucleated RBC 1 % (0); Platelet Count 54 thou/uL (130-400); Platelet Morphology Comment Appears Decreased; RBC Distribution Width 13.9 % (11.5-14.5); Red Blood Cell (RBC) Count 2.82 mill/uL (4.20-5.40); White Blood Cell (WBC) Count 10.4 thou/uL (4.8-10.8)
[2020-02-22] MEDS ORDERED: Potassium Phosphate 15 MMOL in Sodium Chloride 0.9% 250 ML 250 ML IVPB SCH (05:45)
[2020-02-22] MEDS: K-Phos Neutral 250 MG TAB PO SCH ×3 (08:37→17:28)
[2020-02-22] MEDS: Pantoprazole 40 MG VIAL IVP SCH ×2 (08:37→20:54)
[2020-02-22] MEDS: Saccharomyces boulardii 250 MG CAP PO SCH (08:37)
--- NOTE | 2020-02-22 10:06 | PDOC.HOSPP ---
- Subjective Encounter Date: 02/22/20 Encounter Time: 09:15 Subjective: pt up in bed no complains. - Objective Vital Signs & Weight: Vital Signs (12 hours) Temp Pulse Resp BP Pulse Ox 02/22/20 08:32 97.5 F L 102 H 20 135/65 99 02/22/20 04:00 98 F 86 18 163/77 H 96 02/21/20 23:50 60 146/65 H Weight Weight 184 lb 2 oz Most Recent Monitor Data Heart Rate from ECG 95 NIBP 149/76 NIBP BP-Mean 100 Respiration from ECG 21 SpO2 99 I&O: 02/21/20 02/22/20 02/23/20 06:59 06:59 06:59 Intake Total 9699 2140 Output Total 1552 8023 Balance -045 -7692 Result Diagrams: 02/22/20 03:54 02/22/20 03:54 Additional Labs: Accuchecks 02/22/20 02/22/20 02/21/20 06:12 00:06 16:36 POC Glucose 152 H 106 80 Hospitalist ROS - Review of Systems Respiratory: denies: cough, dry, shortness of breath, hemoptysis, SOB with excertion, pleuritic pain, sputum, wheezing, other Cardiovascular: denies: chest pain, palpitations, orthopnea, paroxysmal noc. dyspnea, edema, light headedness, other Gastrointestinal: denies: nausea, vomiting, abdominal pain, diarrhea, constipation, melena, hematochezia, other - Medication Medications: Active Medications Generic Name Dose Route Start Last Admin Trade Name Freq PRN Reason Stop Dose Admin Sodium Chloride 1,000 mls @ 80 mls/hr 02/19/20 08:35 02/22/20 07:21 1/2 Normal Saline IV 1,000 mls .[id number] MARY Administration Levofloxacin 750 mg/ Device 150 mls @ 100 mls/hr 02/22/20 09:00 02/22/20 09: 55 IVPB 150 mls Q24HR MARY Administration Morphine Sulfate 2 mg 02/19/20 08:36 02/19/20 23:00 Morphine SLOW IVP 2 mg Q4H PRN Administration Pain Ondansetron HCl 4 mg 02/19/20 08:35 02/19/20 08:35 Zofran IVP 4 mg Q6H PRN Administration Nausea/Vomiting Pantoprazole Sodium 40 mg 02/17/20 21:00 02/22/20 08:37 Protonix IVP 40 mg Q12HR MARY Administration Phosphorus 250 mg 02/22/20 08:00 02/22/20 08:37 Kphos Neutral PO 250 mg TID-WM MARY Administration Saccharomyces Boulardii 250 mg 02/18/20 09:00 02/22/20 08:37 Florastor PO 250 mg DAILY MARY Administration Sodium Chloride 10 ml 02/17/20 13:07 02/19/20 08:51 Normal Saline Pf FS 10 ml PRN PRN Administration RECONSTITUTION - Exam Heart: negative: RRR, no murmur, no gallops, no rubs, normal peripheral pulses, irregular, diminshed peripheral pulses, murmur present, II/IV, III/IV Respiratory: rales Gastrointestinal: negative: soft, non-tender, non-distended, normal bowel sounds , no palpable masses, no hepatomegaly, no splenomegaly, no bruit, no guarding, no rigidity, tender to palpation, distended, diminished bowl sounds, voluntary guarding Extremities: 1+ LE edema Hosp A/P - Plan (1) Sepsis Code(s): A41.9 - SEPSIS, UNSPECIFIED ORGANISM Status: Acute Qualifiers: Sepsis acute organ dysfunction status: with acute organ dysfunction Acute renal failure type: with acute tubular necrosis Severe sepsis shock status: with septic shock (2) Ascending cholangitis Code(s): K83.09 - OTHER CHOLANGITIS Status: Acute (3) Elevated LFTs Code(s): R79.89 - OTHER SPECIFIED ABNORMAL FINDINGS OF BLOOD CHEMISTRY Status : Acute (4) Bacteremia Code(s): R78.81 - BACTEREMIA Status: Acute (5) FLOYD (acute kidney injury) Code(s): N17.9 - ACUTE KIDNEY FAILURE, UNSPECIFIED Status: Acute (6) Metabolic acidosis Code(s): E87.2 - ACIDOSIS Status: Acute (7) Chronic a-fib Code(s): I48.20 - CHRONIC ATRIAL FIBRILLATION, UNSPECIFIED Status: Chronic (8) Acute blood loss anemia Code(s): D62 - ACUTE POSTHEMORRHAGIC ANEMIA Status: Acute (9) GI bleed Code(s): K92.2 - GASTROINTESTINAL HEMORRHAGE, UNSPECIFIED Status: Acute Qualifiers: GI bleed type/associated pathology: unspecified gastrointestinal hemorrhage type Qualified Code(s): K92.2 - Gastrointestinal hemorrhage, unspecified - Plan has 2/2 klebsiella oxytoca bacteremia s/p ercp with sphincterotomy and removal of stones 02/17/2020 has recieved total of 3 prbc, 2 ffp, 1 platelet this admission is going for bleeding scan and likely colonoscopy/egd based on scan results hold off feeding her continue protonix, meropenem, morphine prn, iv fluids replace electrolytes lft's are slowly trending down OOB to chair and mobilize as tolerated with PT 02/21 will discontinue heck, decrease fluids. Advance diet per gi. hh stable. will switch abx to Levaquin per sensitivities
--- NOTE | 2020-02-22 13:12 | PRG ---
DATE OF SERVICE: 02/22/2020 SUBJECTIVE: Ms. Davis continues to feel fatigued and tired, but she denies any abdominal pain or nausea or vomiting. She has been tolerating her liquid diet just fine. She has remained hemodynamically stable and afebrile. Her tagged RBC scan yesterday was negative. She had one bowel movement this morning, which was a bit dark, but small in volume. Hemoglobin is stable. OBJECTIVE: VITAL SIGNS: Temperature 97.9, pulse 90, blood pressure 138/78, and 95% oxygen saturation on 2 L nasal cannula. GENERAL: No acute distress, lying in bed comfortably. HEART: Regular rate and rhythm. LUNGS: Clear to auscultation bilaterally. ABDOMEN: Bowel sounds present. Soft, nontender to palpation. EXTREMITIES: No peripheral edema. LABORATORY STUDIES: Hemoglobin stable at 8.3, WBC 10.4, platelets 54. Sodium 134; potassium 2.9; BUN 38; creatinine 2.39, slightly improved from 2.76 yesterday; glucose 151. Total bilirubin down to 2.1, direct bilirubin down to 1.3, alkaline phosphatase down to 221, AST down to 92, ALT down to 108. ASSESSMENT AND PLAN: 1. Cholangitis, improving. 2. Sepsis secondary to Klebsiella oxytoca, clinically improved on continued antibiotics, post endoscopic retrograde cholangiopancreatography with biliary sphincterotomy and stone and sludge extraction. 3. Gastrointestinal bleeding, likely related to her biliary sphincterotomy. She received 3 units of blood initially. Hemoglobin has now been stable for the past three days, currently at 8.3. Tagged RBC scan yesterday was negative. It appears that the bleeding has resolved. Continue to trend hemoglobin and hematocrit tomorrow. I discussed with the patient that overall her lab parameters including LFTs, renal function, hemoglobin, are all heading in the right direction, I think she could advance her diet further this evening. Job ID: [id number]
--- NOTE | 2020-02-22 16:09 | PRG ---
DATE OF SERVICE: 02/22/2020 SUBJECTIVE: Oscar has no complaints. She denies abdominal discomfort. OBJECTIVE: VITAL SIGNS: She is afebrile, heart rate is 90, respiratory rate is 16, oximetry is 95 on 2 L, blood pressure is 138/78. LUNGS: Clear. HEART: Regular rhythm. ABDOMEN: Nontender. LABORATORY DATA: She says she is still passing blood when she has a bowel movement. Her hemoglobin today is 8.3. Potassium is 2.9, creatinine is 2.39, which is down from 2.97 two days ago and 3.00 three days ago. Phosphorus is also low at 1.9. Bilirubin is down to 2.1. Liver enzymes are about the same. IMPRESSION: Cholangitis with Klebsiella bacteremia. Fortunately, the organism is pansensitive. Continue supportive care. Job ID: [id number]
[2020-02-23 05:07] LABS: ALT (SGPT) 87 U/L (8-55); AST (SGOT) 59 U/L (5-34); Albumin 2.8 g/dL (3.4-4.8); Alkaline Phosphatase 200 U/L (40-110); Bilirubin, Direct 1.1 mg/dL (0.1-0.3); Bilirubin, Total 1.8 mg/dL (0.2-1.2); Magnesium 1.8 mg/dL (1.6-2.6)
[2020-02-23 05:19] LABS: Anion Gap 13 mmol/L (10-20); BUN (Urea Nitrogen) 32 mg/dL (9.8-20.1); Calc. Creatinine Clearance 32 mL/min (70-130); Calcium 7.7 mg/dL (7.8-10.44); Carbon Dioxide 24 mmol/L (23-31); Chloride 102 mmol/L (98-107); Estimated GFR-MDRD 22; Glucose 127 mg/dL (80-115); Phosphorus 3.5 mg/dL (2.3-4.7); Potassium 2.8 mmol/L (3.5-5.1); Sodium 136 mmol/L (136-145)
[2020-02-23] MEDS ORDERED: Potassium Chloride 40 MEQ in Sodium Chloride 0.9% 250 ML 250 ML IVPB SCH (05:45)
[2020-02-23] MEDS: Sodium Chloride 0.45% 1,000 ML IV SCH ×2 (06:01→08:58)
[2020-02-23] MEDS: K-Phos Neutral 250 MG TAB PO SCH (08:34)
[2020-02-23] MEDS: Saccharomyces boulardii 250 MG CAP PO SCH (08:34)
[2020-02-23] MEDS: Pantoprazole 40 MG VIAL IVP SCH ×2 (08:34→20:14)
[2020-02-23] MEDS: Metoprolol Tartrate 25 MG TAB PO SCH ×2 (09:01→20:14)
[2020-02-23] MEDS: Amlodipine 5 MG TAB PO SCH (09:01)
[2020-02-23] MEDS: DULoxetine 60 MG CAP PO SCH (09:01)
[2020-02-23 10:40] LABS: Hemoglobin 8.4 g/dL (12.0-16.0); Mean Corpuscular HGB CONC 33.4 g/dL (32.0-36.0); Mean Corpuscular Hemoglobin 28.8 pg (27.0-31.0); Mean Corpuscular Volume 86.3 fL (78.0-98.0); Mean Platelet Volume 12.5 fL (7.4-10.4); Platelet Count 67 thou/uL (130-400); RBC Distribution Width 14.3 % (11.5-14.5); Red Blood Cell (RBC) Count 2.92 mill/uL (4.20-5.40)
[2020-02-23 10:55] LABS: Band 20 % (5-11); Eosinophils 3 % (0-10); Lymphocytes 11 % (21-51); MDiff Complete? YES; Metamyelocyte 1 % (0-0); Monocytes 21 % (0-10); Neutrophil 43 % (42-75); Platelet Morphology Comment Appears Decreased; Polychromasia SLIGHT = 2-3 cells (100X) (0-2/hpf); Promyelocytes 1 % (0-0); Schistocytes SLIGHT = 2-5 cells (100X) (0-1/hpf)
[2020-02-23] MEDS: Clopidogrel Bisulfate 75 MG TAB PO SCH (11:59)
--- NOTE | 2020-02-23 14:27 | PDOC.HOSPP ---
- Subjective Encounter Date: 02/23/20 Encounter Time: 11:15 Subjective: pt up in bed complains of having generalized weakness. - Objective Vital Signs & Weight: Vital Signs (12 hours) Temp Pulse Pulse Pulse Resp BP BP 02/23/20 11:51 97.6 F 86 18 02/23/20 09:08 108 H 104 H 158/81 H 139/80 02/23/20 08:27 98.0 F 103 H 20 02/23/20 07:03 02/23/20 03:49 97.6 F 80 18 BP Pulse Ox Pulse Ox Pulse Ox 02/23/20 11:51 135/70 95 02/23/20 09:08 95 95 02/23/20 08:27 166/79 H 98 02/23/20 07:03 97 02/23/20 03:49 168/77 H 97 Weight Weight 181 lb 1.6 oz Most Recent Monitor Data Heart Rate from ECG 95 NIBP 149/76 NIBP BP-Mean 100 Respiration from ECG 21 SpO2 99 I&O: 02/22/20 02/23/20 02/24/20 06:59 06:59 06:59 Intake Total 2140 3490 Output Total 3925 5300 Balance -1785 -1810 Result Diagrams: 02/23/20 04:37 02/23/20 04:34 Additional Labs: Accuchecks 02/23/20 02/23/20 02/23/20 12:02 05:58 01:24 POC Glucose 114 H 129 H 118 H 02/22/20 18:16 POC Glucose 108 Hospitalist ROS - Review of Systems Constitutional: reports: weakness Cardiovascular: denies: chest pain, palpitations, orthopnea, paroxysmal noc. dyspnea, edema, light headedness, other Gastrointestinal: denies: nausea, vomiting, abdominal pain, diarrhea, constipation, melena, hematochezia, other Genitourinary: denies: dysuria, frequency, incontinence, hematuria, retention, other - Medication Medications: Active Medications Generic Name Dose Route Start Last Admin Trade Name Freq PRN Reason Stop Dose Admin Amlodipine Besylate 5 mg 02/23/20 09:00 02/23/20 09:01 Norvasc PO 5 mg DAILY MARY Administration Clopidogrel Bisulfate 75 mg 02/23/20 09:00 02/23/20 11:59 Plavix PO 75 mg DAILY MARY Administration Duloxetine HCl 60 mg 02/23/20 09:00 02/23/20 09:01 Cymbalta PO 60 mg QAM MARY Administration Sodium Chloride 1,000 mls @ 20 mls/hr 02/23/20 08:46 02/23/20 08:58 1/2 Normal Saline IV 1,000 mls .Q24H MARY Administration Metoprolol Tartrate 25 mg 02/23/20 09:00 02/23/20 09:01 Lopressor PO 25 mg BID MARY Administration Morphine Sulfate 2 mg 02/19/20 08:36 02/19/20 23:00 Morphine SLOW IVP 2 mg Q4H PRN Administration Pain Ondansetron HCl 4 mg 02/19/20 08:35 02/19/20 08:35 Zofran IVP 4 mg Q6H PRN Administration Nausea/Vomiting Pantoprazole Sodium 40 mg 02/17/20 21:00 02/23/20 08:34 Protonix IVP 40 mg Q12HR MARY Administration Saccharomyces Boulardii 250 mg 02/18/20 09:00 02/23/20 08:34 Florastor PO 250 mg DAILY MARY Administration Sodium Chloride 10 ml 02/17/20 13:07 02/19/20 08:51 Normal Saline Pf FS 10 ml PRN PRN Administration RECONSTITUTION - Exam Neck: negative: supple, symmetric, no JVD, no thyromegaly, no lymphadenopathy, no carotid bruit, JVD Heart: negative: RRR, no murmur, no gallops, no rubs, normal peripheral pulses, irregular, diminshed peripheral pulses, murmur present, II/IV, III/IV Respiratory: negative: CTAB, no wheezes, no rales, no ronchi, normal chest expansion, no tachypnea, normal percussion, rales, rhonchi, tachypneic, wheezes Gastrointestinal: negative: soft, non-tender, non-distended, normal bowel sounds , no palpable masses, no hepatomegaly, no splenomegaly, no bruit, no guarding, no rigidity, tender to palpation, distended, diminished bowl sounds, voluntary guarding Hosp A/P - Plan (1) Sepsis Code(s): A41.9 - SEPSIS, UNSPECIFIED ORGANISM Status: Acute Qualifiers: Sepsis acute organ dysfunction status: with acute organ dysfunction Acute renal failure type: with acute tubular necrosis Severe sepsis shock status: with septic shock (2) Ascending cholangitis Code(s): K83.09 - OTHER CHOLANGITIS Status: Acute (3) Elevated LFTs Code(s): R79.89 - OTHER SPECIFIED ABNORMAL FINDINGS OF BLOOD CHEMISTRY Status : Acute (4) Bacteremia Code(s): R78.81 - BACTEREMIA Status: Acute (5) FLOYD (acute kidney injury) Code(s): N17.9 - ACUTE KIDNEY FAILURE, UNSPECIFIED Status: Acute (6) Metabolic acidosis Code(s): E87.2 - ACIDOSIS Status: Acute (7) Chronic a-fib Code(s): I48.20 - CHRONIC ATRIAL FIBRILLATION, UNSPECIFIED Status: Chronic (8) Acute blood loss anemia Code(s): D62 - ACUTE POSTHEMORRHAGIC ANEMIA Status: Acute (9) GI bleed Code(s): K92.2 - GASTROINTESTINAL HEMORRHAGE, UNSPECIFIED Status: Acute Qualifiers: GI bleed type/associated pathology: unspecified gastrointestinal hemorrhage type Qualified Code(s): K92.2 - Gastrointestinal hemorrhage, unspecified - Plan has 2/2 klebsiella oxytoca bacteremia s/p ercp with sphincterotomy and removal of stones 02/17/2020 has recieved total of 3 prbc, 2 ffp, 1 platelet this admission is going for bleeding scan and likely colonoscopy/egd based on scan results hold off feeding her continue protonix, meropenem, morphine prn, iv fluids replace electrolytes lft's are slowly trending down OOB to chair and mobilize as tolerated with PT 02/21 will discontinue heck, decrease fluids. Advance diet per gi. hh stable. will switch abx to Levaquin per sensitivities 02/22 pt's thrombocytopenia is improving most likely sepsis related. will start her on plavix since she has a stent placed in 2019. will monitor her. will change her Levaquin per pharmacy recommendation. HH is low stable. she is not interested in going to rehab she wants to go home when medically stable. K replaced.
[2020-02-23] MEDS: Potassium Chloride 20 MEQ TAB PO SCH (16:10)
--- NOTE | 2020-02-23 18:22 | PRG ---
DATE OF SERVICE: 02/22/2020 SUBJECTIVE: Ms. Davis is doing better. She seems to be more lucid today. No current complaints. OBJECTIVE: VITAL SIGNS: Blood pressure 159/66, pulse 97, respirations 20. LUNGS: Clear to auscultation. HEART: Regular rate and rhythm. ABDOMEN: Soft, nontender, nondistended. EXTREMITIES: No edema. IMPRESSION: 1. Dysrhythmia. 2. Coronary artery disease. 3. Status post stent placement. 4. Gastrointestinal bleed. RECOMMENDATIONS: Still awaiting interrogation of the ICD. At this point, no significant dysrhythmias noted to monitor. Continue current course. Job ID: [id number]
--- NOTE | 2020-02-23 18:39 | CON ---
DATE OF CONSULTATION: 02/21/2020 REASON FOR CONSULTATION: Dysrhythmia. HISTORY OF PRESENT ILLNESS: Ms. Davis is a 69-year-old woman whom I had seen and evaluated in the past. She has a history of CAD, status post stent placement in addition to nonsustained VT and atrial fibrillation. She recently presented with volvulus and hiatal hernia. She was diagnosed as cholangitis and sepsis secondary to Klebsiella. She also had a GI bleed. I was consulted for dysrhythmia. From a CV standpoint, Ms. Davis has had significant dysrhythmias in the past. She currently has an ICD. She has had nonsustained VT and PVCs in addition to atrial fibrillation. She previously has been on Eliquis. PAST MEDICAL HISTORY: CVA, hyperlipidemia, hypertension, PVCs, asthma, atrial fibrillation, ventricular tachycardia, CAD, ICD placement, cholecystectomy, hysterectomy, tonsillectomy, right knee surgery. HOME MEDICATIONS: Include, 1. Mexiletine. 2. Plavix. 3. Toprol. 4. Pepcid. 5. Eliquis. 6. Zetia. 7. Crestor. 8. Losartan. 9. Symbicort. REVIEW OF SYSTEMS: A 10-point review of systems is reviewed as above, otherwise negative. PHYSICAL EXAMINATION: GENERAL: She does have somewhat slurred speech. This is felt to be chronic. VITAL SIGNS: Blood pressure 137/91, pulse 101, respirations 20. NEUROLOGIC: The patient is alert and oriented x3 with no focal neurologic deficits. HEENT: Sclerae without icterus. Mouth has moist mucous membranes with normal pallor. NECK: No JVD. Carotid upstroke brisk. No bruits bilaterally. LUNGS: Clear to auscultation with unlabored respirations. BACK: No scoliosis or kyphosis. CARDIAC: Regular rate and rhythm with normal S1 and S2. No S3 or S4 noted. No significant rubs, murmurs, thrills, or gallops noted throughout the precordium. PMI is not displaced. There is no parasternal heave. ABDOMEN: Soft, nontender, nondistended. No peritoneal signs present. No hepatosplenomegaly. No abnormal striae. EXTREMITIES: 2+ femoral and 2+ dorsalis pedis pulses. No cyanosis, clubbing, or edema. SKIN: No gross abnormalities. IMPRESSION: 1. Dysrhythmia. 2. Cholangitis. 3. Sepsis. 4. Gastrointestinal bleed. 5. Coronary artery disease. 6. Status post stent placement. RECOMMENDATIONS: Ms. Davis has had significant dysrhythmia in the past and was followed by EP. We would recommend interrogating her ICD to assess for any further dysrhythmias, but I feel her current state is her baseline. We will hold Eliquis due to GI bleed. Otherwise, I have no further recommendations. Job ID: [id number]
[2020-02-23] MEDS: Montelukast Sodium 10 mg Tablet PO SCH (20:14)
[2020-02-23] MEDS: Rosuvastatin 20 MG TAB PO SCH (20:14)
--- NOTE | 2020-02-23 23:51 | PRG ---
DATE OF SERVICE: REASON FOR CONSULTATION: Acute cholangitis, status post ERCP. SUBJECTIVE: Today, the patient states that she is doing much better with no complaints of abdominal pain, although she does continue to have the sensation of fatigue. She has been able to tolerate advancement in her diet to a heart-healthy diet without difficulty. She denies any episodes of hematemesis, melena, or hematochezia. OBJECTIVE: VITAL SIGNS: Temperature 97.9, pulse 95 blood pressure 143/70, respiratory rate 19, and saturating 97% on room air. GENERAL: The patient is lying in bed, in no acute distress. Alert and oriented x4. CARDIOVASCULAR: Regular rate and rhythm. RESPIRATORY: Clear to auscultation bilaterally. ABDOMEN: Normoactive bowel sounds. Soft, nontender, and nondistended. EXTREMITIES: No cyanosis, clubbing, or edema. LABORATORY DATA: CBC with a white blood cell count of 13, hemoglobin 8.4, hematocrit 25.2, and platelets 67. Chemistry with a sodium of 136, potassium 2.8, chloride 102, CO2 of 24, BUN 32, creatinine 2.17, and glucose 127. AST 59, ALT 87, alkaline phosphatase 200, and total bilirubin 1.8. IMAGING DATA: No current GI imaging is available for review. ASSESSMENT AND PLAN: 1. Cholangitis. The patient initially presented with biliary obstruction with cholangitis and subsequently underwent ERCP on February 17, 2020, with sphincterotomy performed at that time and then removal of multiple stones within the common bile duct. The patient now has downtrending LFTs indicative of response to therapy. 2. Sepsis, secondary to Klebsiella oxytoca. Patient is currently on antibiotics and clinically improving. We will continue antibiotic administration for a total duration of therapy of approximately 7 days. 3. Gastrointestinal bleeding. The patient exhibited a decrease in her H and H in the post ERCP period concerning for bleeding from the sphincterotomy itself. However, her hemoglobin has now been stable for the last 48 to 72 hours and had a tagged red cell scan approximately 48 hours ago that was negative. She denies any episodes of clinical GI bleeding making the likelihood of continued GI bleeding much less likely. RECOMMENDATION: We will sign off at this time. Please call with any questions. Job ID: [id number]
--- NOTE | 2020-02-24 01:31 | PRG ---
DATE OF SERVICE: 02/23/2020 SUBJECTIVE: Ms. Davis is doing better. No current complaints. Rhythm in the monitor had been stable. OBJECTIVE: VITAL SIGNS: Blood pressure 142/73, pulse 80, respirations 20. LUNGS: Clear to auscultation. HEART: Regular rate and rhythm. ABDOMEN: Soft, nontender, nondistended. EXTREMITIES: No edema. ICD INTERROGATION: Intermittent episodes of atrial fibrillation. She also appears to have PVCs. No significant runs of nonsustained VT. IMPRESSION: 1. Dysrhythmia. 2. Gastrointestinal bleed. 3. Coronary artery disease. 4. Status post stent placement. RECOMMENDATIONS: At this point, we will continue current course. We would not change any current medications. We will continue outpatient medications prescribed. It does not appear she has resumed mexiletine. We will restart 150 mg p.o. b.i.d. Job ID: [id number]
[2020-02-24 05:24] LABS: Anion Gap 12 mmol/L (10-20); BUN (Urea Nitrogen) 26 mg/dL (9.8-20.1); Calc. Creatinine Clearance 33 mL/min (70-130); Calcium 7.9 mg/dL (7.8-10.44); Carbon Dioxide 22 mmol/L (23-31); Chloride 103 mmol/L (98-107); Estimated GFR-MDRD 23; Glucose 95 mg/dL (80-115); Magnesium 1.7 mg/dL (1.6-2.6); Phosphorus 2.6 mg/dL (2.3-4.7); Potassium 3.3 mmol/L (3.5-5.1); Sodium 134 mmol/L (136-145)
[2020-02-24 05:48] LABS: Hemoglobin 8.2 g/dL (12.0-16.0); Mean Corpuscular HGB CONC 33.6 g/dL (32.0-36.0); Mean Corpuscular Hemoglobin 29.1 pg (27.0-31.0); Mean Corpuscular Volume 86.6 fL (78.0-98.0); Mean Platelet Volume 12.5 fL (7.4-10.4); Platelet Count 106 thou/uL (130-400); RBC Distribution Width 14.8 % (11.5-14.5); Red Blood Cell (RBC) Count 2.81 mill/uL (4.20-5.40); White Blood Cell (WBC) Count 14.1 thou/uL (4.8-10.8)
[2020-02-24 06:03] LABS: Band 16 % (5-11); Eosinophils 4 % (0-10); Lymphocytes 17 % (21-51); MDiff Complete? YES; Monocytes 10 % (0-10); Myelocyte 3 % (0-0); Neutrophil 49 % (42-75); Platelet Morphology Comment Appears Decreased
[2020-02-24] MEDS: Potassium Chloride 20 MEQ TAB PO SCH (07:58)
[2020-02-24] MEDS: Sodium Chloride 0.45% 1,000 ML IV SCH (07:59)
[2020-02-24] MEDS: Amlodipine 5 MG TAB PO SCH (08:00)
[2020-02-24] MEDS: Clopidogrel Bisulfate 75 MG TAB PO SCH (08:00)
[2020-02-24] MEDS: Pantoprazole 40 MG VIAL IVP SCH ×2 (08:00→20:55)
[2020-02-24] MEDS: DULoxetine 60 MG CAP PO SCH (08:00)
[2020-02-24] MEDS: Metoprolol Tartrate 25 MG TAB PO SCH ×2 (08:00→20:55)
[2020-02-24] MEDS: Saccharomyces boulardii 250 MG CAP PO SCH (08:01)
--- NOTE | 2020-02-24 10:38 | PRG ---
DATE OF SERVICE: 02/24/2020 SUBJECTIVE: Ms. Davis is doing much better. She continues to improve mentally. No current complaints. OBJECTIVE: VITAL SIGNS: Blood pressure 139/89, pulse 99, and respirations 20. LUNGS: Clear to auscultation. HEART: Regular rate and rhythm. ABDOMEN: Soft, nontender, and nondistended. EXTREMITIES: No edema. PERTINENT LABORATORY DATA: Hemoglobin 8.2. IMPRESSION: 1. Gastrointestinal bleed. 2. Dysrhythmia. 3. Atrial fibrillation. 4. Premature ventricular complexes. 5. Coronary artery disease. 6. Status post stent placement. RECOMMENDATIONS: Ms. Davis does have an ICD. It was interrogated. No significant dysrhythmias outside of atrial fibrillation were noted. Plavix has been restarted. From my standpoint, I would recommend restarting Eliquis as soon as okay from a GI standpoint. She does have a previous history of stroke. She is at an increased risk of a CVA, but have to weigh against the risk of rebleed. Otherwise, I have no further recommendations. ADDENDUM: Spoke with Dr. Villagomez. Ok to resume ACT tomorrow. Will fu with pt as outpatient Job ID: [id number] MTDD
--- NOTE | 2020-02-24 12:23 | PDOC.HOSPP ---
- Subjective Encounter Date: 02/24/20 Encounter Time: 10:50 Subjective: no abd pain or nausea or sob feels better says she ambulated to bathroom and back by herself with no rw - Objective Vital Signs & Weight: Vital Signs (12 hours) Temp Pulse Resp BP BP Pulse Ox 02/24/20 11:29 97.7 F 77 18 147/65 H 94 L 02/24/20 08:10 97 02/24/20 08:00 99 139/89 02/24/20 07:52 98.2 F 99 20 139/89 97 02/24/20 07:06 94 L 02/24/20 03:55 98.2 F 79 18 157/74 H 94 L Weight Weight 185 lb 6.4 oz Most Recent Monitor Data Heart Rate from ECG 95 NIBP 149/76 NIBP BP-Mean 100 Respiration from ECG 21 SpO2 99 I&O: 02/23/20 02/24/20 02/25/20 06:59 06:59 06:59 Intake Total 3490 2980 Output Total 5300 2700 Balance -1810 280 Result Diagrams: 02/24/20 04:38 02/24/20 04:38 Additional Labs: Accuchecks 02/24/20 02/24/20 02/24/20 12:11 05:55 00:23 POC Glucose 115 H 104 171 H 02/23/20 17:03 POC Glucose 107 Hospitalist ROS - Medication Medications: Active Medications Generic Name Dose Route Start Last Admin Trade Name Freq PRN Reason Stop Dose Admin Amlodipine Besylate 5 mg 02/23/20 09:00 02/24/20 08:00 Norvasc PO 5 mg DAILY MARY Administration Clopidogrel Bisulfate 75 mg 02/23/20 09:00 02/24/20 08:00 Plavix PO 75 mg DAILY MARY Administration Duloxetine HCl 60 mg 02/23/20 09:00 02/24/20 08:00 Cymbalta PO 60 mg QAM MARY Administration Sodium Chloride 1,000 mls @ 20 mls/hr 02/23/20 08:46 02/24/20 07:59 1/2 Normal Saline IV 1,000 mls .Q24H MARY Administration Metoprolol Tartrate 25 mg 02/23/20 09:00 02/24/20 08:00 Lopressor PO 25 mg BID MARY Administration Montelukast Sodium 10 mg 02/23/20 21:00 02/23/20 20:14 Singulair PO 10 mg HS MARY Administration Morphine Sulfate 2 mg 02/19/20 08:36 02/19/20 23:00 Morphine SLOW IVP 2 mg Q4H PRN Administration Pain Ondansetron HCl 4 mg 02/19/20 08:35 02/19/20 08:35 Zofran IVP 4 mg Q6H PRN Administration Nausea/Vomiting Pantoprazole Sodium 40 mg 02/17/20 21:00 02/24/20 08:00 Protonix IVP 40 mg Q12HR MARY Administration Rosuvastatin Calcium 20 mg 02/23/20 21:00 02/23/20 20:14 Crestor PO 20 mg HS MARY Administration Saccharomyces Boulardii 250 mg 02/18/20 09:00 02/24/20 08:01 Florastor PO 250 mg DAILY MARY Administration Sodium Chloride 10 ml 02/17/20 13:07 02/19/20 08:51 Normal Saline Pf FS 10 ml PRN PRN Administration RECONSTITUTION - Exam General Appearance: awake alert Eye: PERRL, anicteric sclera ENT: no oropharyngeal lesions, moist mucosa Neck: supple, no JVD Heart: no murmur, irregular Respiratory: no wheezes, no rales Gastrointestinal: soft, non-tender, non-distended, normal bowel sounds, no guarding, no rigidity Extremities: no cyanosis, no edema Neurological: cranial nerve grossly intact, no focal deficits Psychiatric: normal affect, A&O x 3 Hosp A/P (1) Sepsis Code(s): A41.9 - SEPSIS, UNSPECIFIED ORGANISM Status: Acute Qualifiers: Sepsis acute organ dysfunction status: with acute organ dysfunction Acute renal failure type: with acute tubular necrosis Severe sepsis shock status: with septic shock (2) Ascending cholangitis Code(s): K83.09 - OTHER CHOLANGITIS Status: Acute (3) Elevated LFTs Code(s): R79.89 - OTHER SPECIFIED ABNORMAL FINDINGS OF BLOOD CHEMISTRY Status : Acute (4) Bacteremia Code(s): R78.81 - BACTEREMIA Status: Acute (5) FLOYD (acute kidney injury) Code(s): N17.9 - ACUTE KIDNEY FAILURE, UNSPECIFIED Status: Acute (6) Metabolic acidosis Code(s): E87.2 - ACIDOSIS Status: Resolved (7) Chronic a-fib Code(s): I48.20 - CHRONIC ATRIAL FIBRILLATION, UNSPECIFIED Status: Chronic (8) Acute blood loss anemia Code(s): D62 - ACUTE POSTHEMORRHAGIC ANEMIA Status: Resolved (9) GI bleed Code(s): K92.2 - GASTROINTESTINAL HEMORRHAGE, UNSPECIFIED Status: Resolved Qualifiers: GI bleed type/associated pathology: unspecified gastrointestinal hemorrhage type Qualified Code(s): K92.2 - Gastrointestinal hemorrhage, unspecified - Plan has 2/2 klebsiella oxytoca bacteremia sensitive to all antibiotics, on oral levaquin s/p ercp with sphincterotomy and removal of stones 02/17/2020 has recieved total of 3 prbc, 2 ffp, 1 platelet this admission bleeding scan showed no evidence of bleeding, H/H stable continue protonix, oral iron lft's are slowly trending down mobilize as tolerated with PT hemostable wbc still high, likely has ATN due to sepsis
[2020-02-24] MEDS: Montelukast Sodium 10 mg Tablet PO SCH (20:55)
[2020-02-24] MEDS: Rosuvastatin 20 MG TAB PO SCH (20:55)
[2020-02-25 05:26] LABS: Anion Gap 13 mmol/L (10-20); BUN (Urea Nitrogen) 25 mg/dL (9.8-20.1); Calc. Creatinine Clearance 32 mL/min (70-130); Carbon Dioxide 21 mmol/L (23-31); Chloride 104 mmol/L (98-107); Estimated GFR-MDRD 22; Glucose 86 mg/dL (80-115); Potassium 3.5 mmol/L (3.5-5.1); Sodium 134 mmol/L (136-145)
[2020-02-25 08:42] LABS: ALT (SGPT) 56 U/L (8-55); AST (SGOT) 38 U/L (5-34); Albumin 2.9 g/dL (3.4-4.8); Alkaline Phosphatase 167 U/L (40-110); Bilirubin, Direct 0.9 mg/dL (0.1-0.3); Bilirubin, Total 1.5 mg/dL (0.2-1.2); Protein, Total 5.1 g/dL (6.0-8.3)
[2020-02-25] MEDS: Pantoprazole 40 MG VIAL IVP SCH (08:53)
[2020-02-25] MEDS: DULoxetine 60 MG CAP PO SCH (08:54)
[2020-02-25] MEDS: Metoprolol Tartrate 25 MG TAB PO SCH (08:54)
[2020-02-25] MEDS: Amlodipine 5 MG TAB PO SCH (08:54)
[2020-02-25] MEDS: Saccharomyces boulardii 250 MG CAP PO SCH (08:54)
[2020-02-25] MEDS: Clopidogrel Bisulfate 75 MG TAB PO SCH (08:54)
[2020-02-25] MEDS: Sodium Chloride 0.45% 1,000 ML IV SCH (08:56)
[2020-02-25] MEDS ORDERED: Apixaban 2.5 MG TAB PO SCH (09:00)
[2020-02-25] MEDS ORDERED: Fluticasone Propionate Nasal Spray 16 gm Bottle NASAL SCH (09:00)
[2020-02-25 13:37] VITALS: BP 136/65; TEMP 98
--- NOTE | 2020-02-26 18:50 | DIS ---
DATE OF ADMISSION: 02/17/2020 DATE OF DISCHARGE: 02/25/2020 DISCHARGE DISPOSITION: To home. PRIMARY DISCHARGE DIAGNOSES: Septic shock with ascending cholangitis; Klebsiella bacteremia; choledocholithiasis, status post ERCP with extraction of stones; metabolic acidosis; acute kidney injury; acute blood loss anemia with GI bleed; chronic atrial fibrillation. PROCEDURES DONE DURING HOSPITALIZATION: The patient grew 2/2 Klebsiella oxytoca in blood cultures, sensitive to all antibiotics. She has had ERCP with sphincterotomy and removal of stones done on 02/17/[address] Dia. The patient received a total of 3 units of packed cell, 2 units of FFP, and 1 packet of platelet transfusion during this hospitalization. Bleeding nuclear scan done showed no evidence of active bleeding. Discharge H and H of 8 and 24 and platelet count is 106. Had a white count of 23.8 on the day of admission. H and H had dropped down to 6.8 and 20 on 02/19/2020. Blood gas on admission showed a pH of 7.08, pCO2 of 39, pO2 of 87, bicarb was 11 on the blood gas on the day of admission. Discharge BUN and creatinine are 25 and 2.2, serum bicarb of 21 on the day of discharge. Total bilirubin 1.5, AST 38, ALT 56, alkaline phosphatase 167, albumin 2.9 on the day of discharge. Had BUN and creatinine of 49 and 3.0 on the 9th. Admitting total bilirubin was 3.6, AST 855, alkaline phosphatase 216, ALT 605 on the day of admission. Lipase was 45. DISCHARGE MEDICATIONS: 1. Levaquin 250 mg p.o. daily for another 5 days. 2. Florastor 250 mg p.o. daily. 3. Eliquis 2.5 mg twice daily. 4. Norvasc 5 mg p.o. daily. 5. Ellipta inhaler daily. 6. Ultram 50 mg 4 times daily p.r.n. 7. Crestor 20 mg p.o. at bedtime. 8. Singulair 10 mg p.o. at bedtime. 9. Metoprolol tartrate 25 mg twice daily. 10. Flonase nasal inhaler q.a.m. 11. Zetia 10 mg p.o. at bedtime. 12. Duloxetine 60 mg p.o. q.a.m. 13. Dexilant 60 mg p.o. daily. 14. Plavix 75 mg p.o. daily. 15. Symbicort inhaler 160/4.5 mcg 2 puffs twice daily. ALLERGIES: ALLERGIC TO NIACIN. INPATIENT CONSULTS: Dr. Cash for Pulmonology, Dr. Dia for Gastroenterology , and Dr. Najera for Cardiology. DISCHARGE PLAN: The patient is to follow up with Dr. Per Lezama, her primary care physician, in 1 week; Dr. Dia in 2 weeks. BRIEF COURSE DURING HOSPITALIZATION: The patient initially got admitted on the after she was transferred from [facility]. The patient had elevated LFTs with initial CAT scan done at [facility] showing dilatation of biliary collecting system. She was admitted to ICU. The patient has had ERCP with extraction of stones done. Postprocedure, the patient was maintained on ventilator and was successfully extubated. She had acute blood loss anemia and was given multiple transfusions as described above. Her blood cultures grew Klebsiella oxytoca 2/2. Bleeding nuclear scan done showed no evidence of active bleeding. Her H and H since stabilized after transfusion with no further drop. The patient had acute kidney injury, likely prerenal with component of ATN as well due to infection. Prior to discharge, she is ambulating inside the room and is wanting to go home come what may. She was given options to go to inpatient rehab, but she has refused the same. She has refused home health due to the coronavirus pandemic. Ms. Davis says she will have her sister from [employer] stay with her until she is able to manage herself. Please note, I have seen and examined the patient on the day of discharge. The patient has had prior history of CVA with chronic atrial fibrillation. In view of this, she has been placed on Eliquis 2.5 mg twice daily based on renal function. She is hemodynamically stable at the time of discharge and is tolerating solid food. Job ID: [id number] [id number]
== END 2020-02-25 13:29 | disposition home health service (06) | DRG 871 ==
LOC: CCU 10:53 → 2NO 02-21 14:20
PROVIDERS: ADMIT Internal Medicine; ATTEND Internal Medicine
PROC: 0FC98ZZ Extirpation of Matter from Common Bile Duct, Via Natural or Artificial Opening Endoscopic (ICD-10-PCS; principal; 2020-02-17)
PROC: BF101ZZ Fluoroscopy of Bile Ducts using Low Osmolar Contrast (ICD-10-PCS; 2020-02-17)
PROC: 0DJ08ZZ Inspection of Upper Intestinal Tract, Via Natural or Artificial Opening Endoscopic (ICD-10-PCS; 2020-02-17)
PROC: 3E043XZ Introduction of Vasopressor into Central Vein, Percutaneous Approach (ICD-10-PCS; 2020-02-17)
PROC: 06HY33Z Insertion of Infusion Device into Lower Vein, Percutaneous Approach (ICD-10-PCS; 2020-02-19)
PROC: B54BZZA Ultrasonography of Right Lower Extremity Veins, Guidance (ICD-10-PCS; 2020-02-19)
PROC: 30233K1 Transfusion of Nonautologous Frozen Plasma into Peripheral Vein, Percutaneous Approach (ICD-10-PCS; 2020-02-19)
PROC: 30233N1 Transfusion of Nonautologous Red Blood Cells into Peripheral Vein, Percutaneous Approach (ICD-10-PCS; 2020-02-19)
PROC: 30233R1 Transfusion of Nonautologous Platelets into Peripheral Vein, Percutaneous Approach (ICD-10-PCS; 2020-02-19)
PROC: 4B02XTZ Measurement of Cardiac Defibrillator, External Approach (ICD-10-PCS; 2020-02-24)
DX: A41.59 Other Gram-negative sepsis (principal); J96.01 Acute respiratory failure with hypoxia; R65.21 Severe sepsis with septic shock; N17.0 Acute kidney failure with tubular necrosis; E87.2 Acidosis; K80.32 Calculus of bile duct with acute cholangitis without obstruction; K92.2 Gastrointestinal hemorrhage, unspecified; D62 Acute posthemorrhagic anemia; I48.20 Chronic atrial fibrillation, unspecified; E78.5 Hyperlipidemia, unspecified; K44.9 Diaphragmatic hernia without obstruction or gangrene; I25.10 Atherosclerotic heart disease of native coronary artery without angina pectoris; J45.30 Mild persistent asthma, uncomplicated; K21.9 Gastro-esophageal reflux disease without esophagitis; F32.9 Major depressive disorder, single episode, unspecified; Z96.651 Presence of right artificial knee joint; K31.89 Other diseases of stomach and duodenum; E87.8 Other disorders of electrolyte and fluid balance, not elsewhere classified; I49.3 Ventricular premature depolarization; I11.0 Hypertensive heart disease with heart failure; I50.9 Heart failure, unspecified; I69.320 Aphasia following cerebral infarction; Z90.49 Acquired absence of other specified parts of digestive tract; Z95.5 Presence of coronary angioplasty implant and graft; Z90.710 Acquired absence of both cervix and uterus; Z95.810 Presence of automatic (implantable) cardiac defibrillator
CPT/HCPCS: 36415; 36416; 36430; 71045; 74330; 78278; 80048; 80053; 80076; 81001; 82533; 82805; 83605; 83690; 83735; 84100; 85007; 85025; 85027; 85046; 85060; 85610; 85730; 86850; 86900; 86901; 87040; 87077; 87149; 87186; 94002; 94003; A9604; C1769; C9113; J0171; J1644; J1720; J1940; J1956; J2185; J2250; J2270; J2405; J2704; J3010; J3480; J3490; J7050; P9016; P9035; P9045; P9047; P9059

== ENCOUNTER 2023-02-12 05:44 | Day surgery (SDC) | payer MEDICARE ==
[2023-02-10 16:31] VITALS: BMI 33.2
[2023-02-12] MEDS ORDERED: PROPOFOL 200 MG/20 ML VIAL ONE (07:45)
== END 2023-02-12 08:41 | disposition home or self-care (01) ==
LOC: SDC 05:44
PROVIDERS: ATTEND Internal Medicine Gastroenterology
PROC: 0DBL8ZX Excision of Transverse Colon, Via Natural or Artificial Opening Endoscopic, Diagnostic (ICD-10-PCS; principal; 2023-02-12)
DX: Z12.11 Encounter for screening for malignant neoplasm of colon (principal); D12.3 Benign neoplasm of transverse colon; K57.30 Diverticulosis of large intestine without perforation or abscess without bleeding; I10 Essential (primary) hypertension; E78.5 Hyperlipidemia, unspecified; Z86.73 Personal history of transient ischemic attack (TIA), and cerebral infarction without residual deficits; Z79.01 Long term (current) use of anticoagulants; Z79.02 Long term (current) use of antithrombotics/antiplatelets; Z79.899 Other long term (current) drug therapy; Z88.8 Allergy status to other drugs, medicaments and biological substances; Z95.5 Presence of coronary angioplasty implant and graft; Z95.810 Presence of automatic (implantable) cardiac defibrillator
CPT/HCPCS: 88305; J2704

== ENCOUNTER 2023-04-03 08:24 | Outpatient (CLI) | payer MEDICARE | END 2023-04-03 08:25 | disposition home or self-care (01) | LOC: RAD 08:24 | PROVIDERS: ATTEND Internal Medicine Critical Care Medicine | DX: R06.00 Dyspnea, unspecified (principal) | CPT/HCPCS: 71046 ==